=== PATIENT | female | born 1995 | race Caucasian/White ===

== ENCOUNTER 2022-10-01 18:08 | Emergency (ER) | payer BC, SELFPAY ==
[2022-10-01 18:22] VITALS: BP 120/80; PULSE 58; RESP 18; TEMP 36.5; O2SAT 96; BMI 27.0
--- NOTE | 2022-10-01 18:43 | ED.GENADULT ---
HPI - General Adult General Time Seen by Provider: 18:43 Date Seen: 10/01/22 Chief complaint: Arrhythmia/Palpitations Stated complaint: COVID+, Rapid heart rate Time Seen by Provider: 10/01/22 18:17 Source: patient Mode of arrival: ambulatory Limitations: no limitations History of Present Illness HPI narrative: Patient is a 27-year-old female who has had a positive test for COVID the last couple of days, she actually is feeling little bit better with less cough congestion, she has at times felt a rapid heart rate however over the last couple of days. She noticed it just before she came here today. She feels like it is somewhat ?irregular? and that her heart is beating hard. She has had some nausea and has not been able to eat or drink well since she had COVID. She feels she may be a little dehydrated. She has no sore throat, no shortness of breath, note no active chest pain at this time. No leg swelling or edema no bleeding or clotting problems. The patient presents here for evaluation past history she has anxiety, allergies, is on quetiapine and gabapentin and Lamotrigine. Patient takes these medicines for depression/anxiety, she also has a sleep disorder for which she takes the Seroquel. Related Data Home Medications Medication Instructions Recorded Confirmed bupropion HCl 150 mg 24 hr tablet, 150 mg PO DAILY 10/01/22 10/01/22 extended release bupropion HCl 300 mg 24 hr tablet, 300 mg PO DAILY 10/01/22 10/01/22 extended release cetirizine 10 mg tablet 10 mg PO DAILY 10/01/22 10/01/22 gabapentin 600 mg tablet 600 mg PO TID 10/01/22 10/01/22 lamotrigine 100 mg tablet 100 mg PO DAILY 10/01/22 10/01/22 naloxone 4 mg/actuation nasal spray intranasal 10/01/22 quetiapine 25 mg tablet 25 mg PO DAILY 10/01/22 10/01/22 quetiapine 50 mg tablet 50 mg PO DAILY 10/01/22 10/01/22 Allergies Allergy/AdvReac Type Severity Reaction Status Date / Time No Known Drug Allergies Allergy Verified 10/01/22 18:28 Review of Systems Status of ROS: Reports: 6 or more systems reviewed and unremarkable except as noted in History and below PFSH PFS Social History Smoking Status: Current every day smoker What tobacco products do you use: cigarettes Do you use any of these nicotine containing products: Vaping Products Second hand tobacco smoke exposure: No How often do you have a drink containing alcohol: never AUDIT-C Alcohol total score: 0 Non-prescribed substance use: former substance user Exam Const: Vital Signs, click to edit/add: Vital Signs - 24 hr 10/01/22 18:22 Temperature 97.7 F Pulse Rate [Pulse Oximeter] 58 L Respiratory Rate 18 Blood Pressure [Ri ght Upper Arm] 120/80 Pulse Oximetry 96 Oxygen Delivery Me thod Room Air Course Vital Signs Vital signs: Initial Vital Signs Temperature 97.7 F 10/01/22 18:22 Temperature Source Temporal Artery Scan 10/01/22 18:22 Pulse Rate 58 L 10/01/22 18:22 Respiratory Rate 18 10/01/22 18:22 Blood Pressure 120/80 10/01/22 18:22 Blood Pressure Mean 93 10/01/22 18:22 Blood Pressure Position High-Fowlers 10/01/22 18:22 Pulse Oximetry 96 10/01/22 18:22 Oxygen Delivery Method 10/01/22 18:22 Vital Signs Temperature 97.7 F 10/01/22 18:22 Pulse Rate 58 L 10/01/22 18:22 Respiratory Rate 18 10/01/22 18:22 Blood Pressure 120/80 10/01/22 18:22 Pulse Oximetry 96 10/01/22 18:22 Oxygen Delivery Method 10/01/22 18:22 Temperature 97.7 F 10/01/22 18:22 Pulse Rate 58 L 10/01/22 18:22 Respiratory Rate 18 10/01/22 18:22 Blood Pressure 120/80 10/01/22 18:22 Pulse Oximetry 96 10/01/22 18:22 Oxygen Delivery Method 10/01/22 18:22 Medical Decision Making MDM Narrative Medical decision making narrative: Patient is a 27-year-old white female with history of anxiety/depression/sleep disorder. On several medications, now with COVID over the last couple of days. Her COVID symptoms seem, white count is actually little bit low to be improving. She has some intermittent runs of palpitations. When she describes it sounds like her heart is beating ?hard and irregular. Her EKG here shows a normal sinus rhythm at a rate of 61 beats per minute no acute ST T-wave changes per my read, I think would also be appropriate to check electrolytes labs, and given she has some nausea give her some sublingual Zofran and review these labs return. Will also check a troponin. Addendum: The patient's EKG by my read shows normal sinus rhythm no acute ST T wave changes her labs look reassuring, her troponin is normal, her electrolytes are normal, white blood cell count is actually low normal, panel 7 looks unremarkable, calcium just minimally low, point of care troponin is 0. The patient this point felt reassured will let her go home light activity rest some of the side effects could be from COVID and anxiety. 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 She denies using it within the last couple of weeks. She has been through treatment for this in the past she does have Narcan at home Lab Data Labs: Lab Results 10/01/22 10/01/22 10/01/22 Range/Units 18:52 18:52 18:55 WBC 4.12 L (4.50-11.00) K/uL RBC 4.47 (4.00-5.20) m/uL Hgb 12.6 (12.0-16.0) gm/dL Hct 38.9 (33.0-51.0) % MCV 87 (80-100) fL MCH 28 (26-34) pg MCHC 32 (32-36) gm/dL RDW Coeff of Shantel 13.4 (11.5-15.5) % Plt Count 226 (140-440) K/uL Neut % (Auto) 55.2 (42.0-72.0) % Lymph % (Auto) 32.5 (20-44) % Villalba % (Auto) 11.4 H (0.0-11.0) % Eos % (Auto) 0.2 (0.0-7.0) % Baso % (Auto) 0.5 (0.0-3.0) % Neut # (Auto) 2.30 (1.7-7.0) K/uL Lymph # (Auto) 1.30 (0.90-2.90) K/uL Villalba # (Auto) 0.50 (0.00-0.90) K/UL Eos # (Auto) 0.00 (0.00-0.50) K/uL Baso # (Auto) 0.00 (0.00-0.30) K/uL Sodium 137 (135-149) mmol/L Potassium 4.4 (3.6-5.1) mmol/L Chloride 103 (96-114) mmol/L Carbon Dioxide 27 (20-32) mmol/L BUN 13 (5-24) mg/dL Creatinine 0.7 (0.5-1.5) mg/dL Estimated Creat Clear 92.71 Estimated GFR 123 ml/min Glucose 96 (60-115) mg/dL Calcium 8.3 L (8.4-10.6) mg/dL POC Troponin I 0.00 L (0.01-0.04) ng/ml Discharge Plan Discharge Clinical Impression: Palpitations Patient Disposition: Home, Self-Care Condition: Stable Additional Instructions: Fluids, light activity, Advil or Tylenol as needed, update regular doctor in the next couple of days, return to ED sooner problems concerns difficulty. Activity Level: Light activity Discharge Diet: Regular Prescriptions: No Action bupropion HCl 150 mg tablet extended release 24 hr 150 mg PO DAILY Label Comments: TAKE 1 TABLET BY MOUTH DAILY bupropion HCl 300 mg tablet extended release 24 hr 300 mg PO DAILY Label Comments: TAKE 1 TABLET BY MOUTH DAILY cetirizine 10 mg tablet 10 mg PO DAILY gabapentin 600 mg tablet 600 mg PO TID Label Comments: TAKE 1 TABLET BY MOUTH THREE TIMES DAILY FOR 90 DAYS lamotrigine 100 mg tablet 100 mg PO DAILY Label Comments: TAKE 1 TABLET BY MOUTH DAILY quetiapine 25 mg tablet 25 mg PO DAILY quetiapine 50 mg tablet 50 mg PO DAILY naloxone 4 mg/actuation spray,non-aerosol INTRANASAL Label Comments: CALL 911. SPR CONTENTS OF ONE SPRAYER (0.1ML) INTO ONE NOSTRIL. REPEAT IN 2-3 MIN IF SYMPTOMS OF OPIOID EMERGENCY PERSIST, ALTERNATE NOSTRILS Follow Up/Referrals: Provider,Not a Local [Primary Care Provider] - Stand Alone Forms: [facility] Info Instructions
[2022-10-01 18:58] LABS: Basophils Percent Auto 0.5 % (0.0-3.0); Eosinophils Percent Auto 0.2 % (0.0-7.0); Hematocrit 38.9 % (33.0-51.0); Hemoglobin* 12.6 gm/dL (12.0-16.0); Immature Granulocytes Pct Auto 0.2 %; Lymphocytes Percent Auto 32.5 % (20-44); Mean Corpuscular HGB Conc 32 gm/dL (32-36); Mean Corpuscular Hemoglobin 28 pg (26-34); Mean Corpuscular Volume 87 fL (80-100); Monocytes Percent Auto 11.4 % (0.0-11.0); Neutrophils Percent Auto 55.2 % (42.0-72.0); Platelet Count* 226 K/uL (140-440); RDW Coefficient of Variation % 13.4 % (11.5-15.5); Red Blood Count 4.47 m/uL (4.00-5.20); Slide Review Reflex No; White Blood Count* 4.12 K/uL (4.50-11.00)
[2022-10-01] MEDS: ONDANSETRON ODT 4 MG TAB PO (19:08)
[2022-10-01 19:09] LABS: Chloride* 103 mmol/L (96-114); Sodium* 137 mmol/L (135-149)
[2022-10-01 19:10] LABS: Potassium* 4.4 mmol/L (3.6-5.1)
[2022-10-01 19:12] LABS: Blood Urea Nitrogen* 13 mg/dL (5-24); Carbon Dioxide* 27 mmol/L (20-32); Creatinine* 0.7 mg/dL (0.5-1.5); Est. Creatinine Clearance* 92.71; Estimated Glomerular Filt Rate 123 ml/min
[2022-10-01 19:13] LABS: Calcium* 8.3 mg/dL (8.4-10.6); Glucose* 96 mg/dL (60-115)
== END 2022-10-01 19:27 | disposition home or self-care (01) ==
PROVIDERS: Emergency Provider Family Medicine
DX: R00.2 Palpitations (principal)
CPT/HCPCS: 36415; 80048; 84484; 85025; 93005; 99284; A9270

== ENCOUNTER 2023-05-29 11:54 | Emergency (ER) | payer BC, SELFPAY ==
[2023-05-29 12:16] VITALS: BP 149/80; PULSE 70; RESP 18; TEMP 36.7; O2SAT 98; BMI 25.7
--- NOTE | 2023-05-29 12:38 | ED.GENADULT ---
HPI - General Adult General Time Seen by Provider: 12:39 Date Seen: 05/29/23 Chief complaint: Ear/Nose/Throat Problem Stated complaint: Sinus infection Time Seen by Provider: 05/29/23 12:15 Source: patient Mode of arrival: ambulatory Limitations: no limitations History of Present Illness HPI narrative: Patient is a 27-year-old female with a history of sinusitis occurring multiple times. She states she gets that every few months. She states she usually goes to the clinic and is given decongestants and antibiotics. She has never seen ENT specialist. Says symptoms; for the past 4 days. States that insert left maxillary sinus and she has been having and greenish discharge from her left nares. She states now symptoms are going to her left ear. Denies any hearing changes. Has a mildly sore throat on the left side also. Denies fevers, chills, or difficulty breathing. Related Data Home Medications Medication Instructions Recorded Confirmed bupropion HCl 150 mg 24 hr tablet, 150 mg PO DAILY 10/01/22 10/01/22 extended release bupropion HCl 300 mg 24 hr tablet, 300 mg PO DAILY 10/01/22 10/01/22 extended release cetirizine 10 mg tablet 10 mg PO DAILY 10/01/22 10/01/22 gabapentin 600 mg tablet 600 mg PO TID 10/01/22 10/01/22 lamotrigine 100 mg tablet 100 mg PO DAILY 10/01/22 10/01/22 naloxone 4 mg/actuation nasal spray intranasal 10/01/22 quetiapine 25 mg tablet 25 mg PO DAILY 10/01/22 10/01/22 quetiapine 50 mg tablet 50 mg PO DAILY 10/01/22 10/01/22 Previous Rx's Medication Instructions Recorded amoxicillin 875 mg-potassium 1 tab PO BID #14 tabs 05/29/23 clavulanate 125 mg tablet Allergies Allergy/AdvReac Type Severity Reaction Status Date / Time No Known Drug Allergies Allergy Verified 10/01/22 18:28 Review of Systems Status of ROS: Reports: 6 or more systems reviewed and unremarkable except as noted in History and below [facility] Social History Smoking Status: Current every day smoker What tobacco products do you use: cigarettes Do you use any of these nicotine containing products: Vaping Products Second hand tobacco smoke exposure: No How often do you have a drink containing alcohol: never AUDIT-C Alcohol total score: 0 Non-prescribed substance use: former substance user service: No Exam Narrative: Exam Narrative: Const: Well-nourished, Well-developed, in mild distress Eyes: PERRL, no conjunctival injection, and symmetrical lids ENMT: Atraumatic external nose and ears. Moist mucous membranes. Uvula midline, no tonsillar exudates or swelling, normal-appearing tympanic membranes bilaterally. There is some swelling noted to the left nares mucosa. Tenderness to palpation left maxillary sinus Neck: Symmetric, trachea midline, No thyromegaly. MSK:Extremities w/o deformity, Normal Active ROM Skin: Warm, Dry. No rashes or lesions. Neuro: Normal Muscle tone, No focal neurological deficits. Psych: Awake, Alert, & Oriented x3. Appropriate mood and affect. Const: Vital Signs, click to edit/add: Vital Signs - 24 hr 05/29/23 12:16 Temperature 98.1 F Pulse Rate [Pulse Oximeter] 70 Respiratory Rate 18 Blood Pressure [Ri ght Upper Arm] 149/80 H Pulse Oximetry 98 Oxygen Delivery Me thod Room Air Course Vital Signs Vital signs: Initial Vital Signs Temperature 98.1 F 05/29/23 12:16 Temperature Source Temporal Artery Scan 05/29/23 12:16 Pulse Rate 70 05/29/23 12:16 Pulse Rhythm Regular 05/29/23 12:16 Respiratory Rate 18 05/29/23 12:16 Blood Pressure 149/80 H 05/29/23 12:16 Blood Pressure Mean 103 05/29/23 12:16 Blood Pressure Position Sitting 05/29/23 12:16 Pulse Oximetry 98 05/29/23 12:16 Oxygen Delivery Method Room Air 05/29/23 12:16 Vital Signs Temperature 98.1 F 05/29/23 12:16 Pulse Rate 70 05/29/23 12:16 Respiratory Rate 18 05/29/23 12:16 Blood Pressure 149/80 H 05/29/23 12:16 Pulse Oximetry 98 05/29/23 12:16 Oxygen Delivery Method Room Air 05/29/23 12:16 Temperature 98.1 F 05/29/23 12:16 Pulse Rate 70 05/29/23 12:16 Respiratory Rate 18 05/29/23 12:16 Blood Pressure 149/80 H 05/29/23 12:16 Pulse Oximetry 98 05/29/23 12:16 Oxygen Delivery Method Room Air 05/29/23 12:16 Medical Decision Making MDM Narrative Medical decision making narrative: The patient is a 27-year-old female presenting for 4 days of sinusitis. This is recurrent issue for her. Has never seen ENT specialist has been on several decongestants and a couple round of antibiotics over the last few years for sinusitis. She states usually as she gets antibiotics his symptoms resolve quickly. She is otherwise doing well. No lab work is necessary at this time. She does preoperative signs of sinusitis. Has a mild sore throat but no signs of deep neck space abscesses. She states she has only been on antibiotics once in the past year. She has been on nasal decongestants and has been using afrin for the past 2 days. I will discharge her home on antibiotics at this time. I informed her to follow up with ENT. She is agreeable to this plan Discharge Plan Discharge Clinical Impression: Sinusitis Qualifiers: Sinusitis location: maxillary Chronicity: acute Recurrence: recurrent Qualified Code(s): J01.01 - Acute recurrent maxillary sinusitis Patient Disposition: Home, Self-Care Condition: Stable Instructions: Sinusitis (ED) Additional Instructions: Follow-up with ENT. Take antibiotics as directed. Make sure you do not take the Afrin for more than 3 days. Return for new worsening symptoms Prescriptions: New amoxicillin-pot clavulanate 875-125 mg tablet 1 tab PO BID Qty: 14 0RF No Action bupropion HCl 150 mg tablet extended release 24 hr 150 mg PO DAILY Patient Comments: TAKE 1 TABLET BY MOUTH DAILY bupropion HCl 300 mg tablet extended release 24 hr 300 mg PO DAILY Patient Comments: TAKE 1 TABLET BY MOUTH DAILY cetirizine 10 mg tablet 10 mg PO DAILY gabapentin 600 mg tablet 600 mg PO TID Patient Comments: TAKE 1 TABLET BY MOUTH THREE TIMES DAILY FOR 90 DAYS lamotrigine 100 mg tablet 100 mg PO DAILY Patient Comments: TAKE 1 TABLET BY MOUTH DAILY quetiapine 25 mg tablet 25 mg PO DAILY quetiapine 50 mg tablet 50 mg PO DAILY naloxone 4 mg/actuation spray,non-aerosol INTRANASAL Patient Comments: CALL 911. SPR CONTENTS OF ONE SPRAYER (0.1ML) INTO ONE NOSTRIL. REPEAT IN 2-3 MIN IF SYMPTOMS OF OPIOID EMERGENCY PERSIST, ALTERNATE NOSTRILS Follow Up/Referrals: Provider,Not a Local [Primary Care Provider] - Stand Alone Forms: [facility] Info Instructions
--- NOTE | 2023-05-29 12:45 | ED.NURSE ---
ENT doctor card/recommendation given to pt.
== END 2023-05-29 13:04 | disposition home or self-care (01) ==
PROVIDERS: Emergency Provider Student in an Organized Health Care Education/Training Program
DX: J01.01 Acute recurrent maxillary sinusitis (principal)
CPT/HCPCS: 99283

== ENCOUNTER 2023-11-12 13:26 | Emergency (ER) | payer BC, SELFPAY ==
[2023-11-12 13:49] VITALS: BP 110/67; PULSE 89; RESP 18; TEMP 36.9; O2SAT 97; BMI 27.0
--- NOTE | 2023-11-12 16:23 | ED_ITS ---
HPI - General Adult General Chief complaint: Dental/Oral/Mouth Injury/Pain Stated complaint: Lower L tooth cracked and face very swollen Time Seen by Provider: 11/12/23 16:06 Source: patient, RN notes reviewed and old records reviewed Mode of arrival: ambulatory Limitations: no limitations History of Present Illness HPI narrative: Patient is a 28-year-old young woman who is here with dental pain related to a wisdom tooth, left lower. She has had problems with this tooth for quite some time, has been on antibiotics several times previously, she says she has not been able to arrange dental follow-up due to her insurance. She says the only clinic that she will able to find who took her insurance did have any appointments until June. She is worried that the tooth is cracked and that she will get a blood infection. It feels swollen, no fevers or redness. Medical history reviewed, she is on Suboxone as well as methylphenidate. Related Data Home Medications Medication Instructions Recorded Confirmed bupropion HCl 150 mg 24 hr tablet, 150 mg PO DAILY 10/01/22 11/12/23 extended release bupropion HCl 300 mg 24 hr tablet, 300 mg PO DAILY 10/01/22 11/12/23 extended release lamotrigine 100 mg tablet 100 mg PO DAILY 10/01/22 11/12/23 naloxone 4 mg/actuation nasal spray intranasal 10/01/22 buprenorphine 8 mg-naloxone 2 mg 10 mg sublingual BID 11/12/23 11/12/23 sublingual film (Suboxone) doxazosin 2 mg tablet 1 mg PO BID 11/12/23 11/12/23 methylphenidate HCl 20 mg tablet 20 mg PO BID 11/12/23 11/12/23 trazodone 100 mg tablet 200 mg PO DAILY 11/12/23 11/12/23 Allergies Allergy/AdvReac Type Severity Reaction Status Date / Time No Known Drug Allergies Allergy Verified 11/12/23 13:48 Review of Systems Status of ROS: Reports: 6 or more systems reviewed and unremarkable except as noted in History and below PFSH PFS Social History Smoking Status: Current every day smoker What tobacco products do you use: cigarettes Do you use any of these nicotine containing products: Vaping Products Second hand tobacco smoke exposure: No How often do you have a drink containing alcohol: never AUDIT-C Alcohol total score: 0 Non-prescribed substance use: former substance user service: No Exam Narrative: Exam Narrative: Vital signs reviewed and normal. In general, alert, well-appearing young woman. She looks comfortable. Eyes: Sclera clear. ENT: No facial swelling. She has a wisdom tooth which is erupted in the left lower jaw, there is no surrounding erythema or edema, nontender to palpation. I do not see obvious significant cracking in the tooth. Neck: Supple without adenopathy. Const: Vital Signs, click to edit/add: Vital Signs - 24 hr 11/12/23 13:49 Temperature 98.4 F Pulse Rate [Pulse Oximeter] 89 Respiratory Rate 18 Blood Pressure [Ri ght Upper Arm] 110/67 Pulse Oximetry 97 Oxygen Delivery Me thod Room Air Documenting provider has reviewed patient's vital signs: yes Course Course ED Course: I have reassured her I do not see evidence of significant abscess or infection at this time, but certainly can provide antibiotics to help with apical abscess. Stressed the need for dental follow-up, provided resources, recommended [place] [facility] [place] as well. Return for signs of abscess such as facial swelling redness or fever. Provided amoxicillin from [facility]. Her last antibiotics for this to she says was a number of months ago. Ibuprofen and Tylenol recommended for pain. Vital Signs Vital signs: Initial Vital Signs Temperature 98.4 F 11/12/23 13:49 Temperature Source Temporal Artery Scan 11/12/23 13:49 Pulse Rate 89 11/12/23 13:49 Pulse Rhythm Regular 11/12/23 13:49 Pulse Strength 3+ Normal 11/12/23 13:49 Respiratory Rate 18 11/12/23 13:49 Blood Pressure 110/67 11/12/23 13:49 Blood Pressure Mean 81 11/12/23 13:49 Blood Pressure Position Sitting 11/12/23 13:49 Pulse Oximetry 97 11/12/23 13:49 Oxygen Delivery Method Room Air 11/12/23 13:49 Vital Signs Temperature 98.4 F 11/12/23 13:49 Pulse Rate 89 11/12/23 13:49 Respiratory Rate 18 11/12/23 13:49 Blood Pressure 110/67 11/12/23 13:49 Pulse Oximetry 97 11/12/23 13:49 Oxygen Delivery Method Room Air 11/12/23 13:49 Temperature 98.4 F 11/12/23 13:49 Pulse Rate 89 11/12/23 13:49 Respiratory Rate 18 11/12/23 13:49 Blood Pressure 110/67 11/12/23 13:49 Pulse Oximetry 97 11/12/23 13:49 Oxygen Delivery Method Room Air 11/12/23 13:49 Discharge Plan Discharge Clinical Impression: Toothache Patient Disposition: Home, Self-Care Condition: Stable Instructions: Toothache (ED) Additional Instructions: Dental follow-up will be very important, all the resources provided. Consider looking into [facility] [place] regions as well as they have training programs and are often flexible with financing. Antibiotic as prescribed. Ibuprofen 400 mg plus Tylenol 1000 mg 3 times daily with food as needed for pain. Ice can be helpful as well. For development of fevers, significant facial swelling or redness, return at any time. Prescriptions: No Action methylphenidate HCl 20 mg tablet 20 mg PO BID trazodone 100 mg tablet 200 mg PO DAILY doxazosin 2 mg tablet 1 mg PO BID buprenorphine-naloxone [Suboxone] 8-2 mg film 10 mg sublingual BID bupropion HCl 150 mg tablet extended release 24 hr 150 mg PO DAILY Patient Comments: TAKE 1 TABLET BY MOUTH DAILY bupropion HCl 300 mg tablet extended release 24 hr 300 mg PO DAILY Patient Comments: TAKE 1 TABLET BY MOUTH DAILY lamotrigine 100 mg tablet 100 mg PO DAILY Patient Comments: TAKE 1 TABLET BY MOUTH DAILY naloxone 4 mg/actuation spray,non-aerosol INTRANASAL Patient Comments: CALL 911. SPR CONTENTS OF ONE SPRAYER (0.1ML) INTO ONE NOSTRIL. REPEAT IN 2-3 MIN IF SYMPTOMS OF OPIOID EMERGENCY PERSIST, ALTERNATE NOSTRILS Follow Up/Referrals: Provider,Not a Local [Primary Care Provider] - Stand Alone [facility]: [facility]
--- OUTSIDE RECORDS SUMMARY | 2023-11-12 16:37 | XMS_ITS | Data Portability ---
Author Name Unknown Address [address] [place] [address] Phone [phone] Organization [place] [facility] Address [address] [place] [phone] Assessment No assessment recorded. Plan of Treatment Reminders Order Date Submit Date Provider Last Modified By Organization Details Last Modified Time Details Appointments None recorded. Lab drug screen, urine [address] Office, [address] [place] [address], [phone], 3 17:21:53 test, urine [address] Office, [address] [place] [address], [phone], 3 17:21:53 fentanyl, qualitativ e, urine - POCT: Positive 2021 [email or web address] Not available 23:34:07 test, urine [address] Office, [address] [place] [address], [address], 2 11:45:46 drug screen, urine [address] Office, [address] [place] [address], [address], 2 11:45:46 hepatitis panel (A+B+C), acute, serum 2021 022 JESUS MANUEL Not available 17:51:14 HIV (1+2) Ab screen, serum 2021 JESUS MANUEL Not available 16:58:07 RPR (rapid plasma reagin), serum 2021 JESUS MANUEL Not available 10:42:05 hepatic function panel, serum 2021 JESUS MANUEL Not available 16:58:07 Referral None recorded. Procedures None recorded. Surgeries None recorded. Imaging None recorded. Medication Orders fluconazol e 150 mg tablet 2022 023 [facility] #29601, [address] [place], [place], [id number], 14:52:04 Miralax 17 gram/dose oral powder 2022 023 [facility] #04795, [address] [place], [place], [id number], 3 14:52:03 Suboxone 12 mg-3 mg sublingual film 2022 023 [facility] #76814, [address] [place], [place], [id number], 3 14:52:10 Suboxone 8 mg-2 mg sublingual film 2022 023 [facility] #31360, [address] [place], [place], [id number], 3 14:52:09 quetiapine 50 mg tablet [email or web address] [place] [address] [facility] #88325, [address] [place], [place], [id number], 3 14:43:22 Suboxone 12 mg-3 mg sublingual film 2022 023 [facility] #70953, [address] [place], [place], [id number], 3 18:10:44 Suboxone 8 mg-2 mg sublingual film 2022 023 [facility] #03423, [address] [place], [place], [id number], 3 18:10:44 Suboxone 12 mg-3 mg sublingual film 2022 023 [facility] #79699, [address] [place], [place], [id number], 3 15:47:07 Suboxone 8 mg-2 mg sublingual film 2022 023 [facility] #89441, [address] [place], [place], [id number], 3 15:47:07 Suboxone 12 mg-3 mg sublingual film 2022 023 [facility] #08469, [address] [place], [place], [id number], 3 17:14:22 Suboxone 8 mg-2 mg sublingual film 2022 023 [facility] #59581, [address] [place], [place], [id number], 3 17:14:22 gabapentin 300 mg capsule [id number] [place] [address] Drug Store #26455, [address] [place], [place], [id number], 3 14:42:25 Suboxone 12 mg-3 mg sublingual film 2022 023 [facility]79817, [address] [place], [place], [id number], 3 17:13:12 Suboxone 8 mg-2 mg sublingual film 2022 023 [facility]33824, [address] [place], [place], [id number], 3 17:13:12 Suboxone 8 mg-2 mg sublingual film 2022 023 [facility] #30772, [address] [place], [place], [id number], 3 15:18:24 Suboxone 12 mg-3 mg sublingual film 2022 023 [facility]62579, [address] [place], [place], [id number], 3 15:18:23 Suboxone 8 mg-2 mg sublingual film 2022 023 [facility]21238, [address] [place], [place], [id number], 3 15:20:52 Suboxone 2 mg-0.5 mg sublingual film [address] [facility] #88657, [address] [place], [place], [id number], 3 15:58:48 Suboxone 8 mg-2 mg sublingual film 2022 023 [facility]13306, [address] [place], [place], [id number], 3 13:25:54 loperamide 2 mg tablet [address] [facility] #75116, [address] [place], [place], [id number], 3 12:40:11 clonidine HCl 0.1 mg tablet [address] [facility] #37685, [address] [place], [place], [id number], 3 16:00:53 Suboxone 8 mg-2 mg sublingual film 2021 [facility] #79702, [address] [place], [place], [id number], 2 17:09:21 Suboxone 8 mg-2 mg sublingual film 2021 [facility] #11674, [address] [place], [place], [id number], 2 16:57:13 Suboxone 8 mg-2 mg sublingual film 2021 [facility] #58097, [address] [place], [place], [id number], 2 15:43:46 ondansetro n 4 mg disintegra ting tablet [address] [facility] #45955, [address] [place], [place], [id number], 2 15:38:36 sulfametho xazole 800 mg-trimeth oprim 160 mg tablet [address] [facility] #45372, [address] [place], [place], [id number], 2 15:39:45 clonidine HCl 0.1 mg tablet 2021 [facility] #26099, [address] [place], [place], [id number], 3 16:00:53 Narcan 4 mg/actuati on nasal spray 2021 [facility] #68908, [address] [place], [place], [id number], 2 15:01:04 Suboxone 8 mg-2 mg sublingual film 2021 [facility] #18527, [address] [place], [place], [id number], 15:01:06 Suboxone 8 mg-2 mg sublingual film 2021 [facility]84156, [address] [place], [place], [id number], 14:43:28 Narcan 4 mg/actuati on nasal spray 2021 [facility] #77737, [address] [place], [place], [id number], 14:47:23 Patient TargetsNo targets recorded. Patient Instructions Encounter Date Encounter Id Patient Instructions Last Modified By Organization Details Last Modified Time 02/07/2023 [id number] anxiety disorder : care instructions [email or web address] Not available 02/07/2023 17:14:11 07/19/2022 [id number] dental referral list [email or web address] Not available 07/19/2022 16:49:06 coordination of care* - Referral to [facility] for Sublocade consideration. Completed referral given to Adolfo Mcdaniel [email or web address] Not available 08/10/2022 20:16:32 05/31/2022 [id number] nausea and vomiting: care instructions [email or web address] Not available 05/31/2022 15:00:55 Reason for Referral None Reported. Results Created Date Observation Date Name Description Value Unit Range Abnormal Flag LastModifiedBy Organization Detail LastModifiedTime 08/10/20 22 08/10/2022 drug scree n, urine Amphetamines : negati ve Not Available [place] [facility] [address] [place] [address] [place], [address], 08/10/2022 11:45:03 08/10/20 22 08/10/2022 drug scree n, urine Cannabinoids : negati ve Not Available [place] [facility] [address] [place] [address] [place], [address], 08/10/2022 11:45:03 08/10/20 22 08/10/2022 drug scree n, urine Cocaine: negati ve Not Available [place] [facility] [place] [facility] [address] [place] [address] [place], [address], 08/10/2022 11:45:03 08/10/20 22 08/10/2022 drug scree n, urine Opiates: negati ve Not Available [place] [facility] [place] [facility] [address] [place] [address] [place], [address], 08/10/2022 11:45:03 08/10/20 22 08/10/2022 drug scree n, urine Phenocyclidi ne: negati ve Not Available [place] [facility] [place] [facility] [address] [place] [address] [place], [address], 08/10/2022 11:45:03 08/10/20 22 08/10/2022 drug scree n, urine Barbiturates : negati ve Not Available [place] [facility] [place] [facility] [address] [place] [address] [place], [address], 08/10/2022 11:45:03 08/10/20 22 08/10/2022 drug scree n, urine Benzodiazepi carlene: negati ve Not Available [place] [facility] [address] [place] [address] [place], [address], 08/10/2022 11:45:03 08/10/20 22 08/10/2022 drug scree n, urine Hallucinogen s: negati ve Not Available [place] [facility] [place] [facility] [address] [place] [address] [place], [address], 08/10/2022 11:45:03 08/10/20 22 08/10/2022 drug scree n, urine TCA negati ve Not Available [place] [facility] [place] [facility] [address] [place] [address] [place], [address], 08/10/2022 11:45:03 08/10/20 22 08/10/2022 drug scree n, urine Buprenorphin e negati ve Not Available [place] [facility] [address] [place] [address] [place], [address], 08/10/2022 11:45:03 08/10/20 22 08/10/2022 pregn jane test, urine HCG negati ve Not Available [place] [facility] [address] [place] [address] [place], [address], 08/10/2022 11:44:44 01/11/20 23 01/10/2023 pregn jane test, urine HCG negati ve Not Available [place] [facility] [address] [place] [address] [place], [address], 01/10/2023 17:21:22 01/11/20 23 01/10/2023 drug scree n, urine Amphetamines : negati ve Not Available [place] [facility] [address] [place] [address] [place], [address], 01/10/2023 17:21:21 01/11/20 23 01/10/2023 drug scree n, urine Cannabinoids : positi ve Not Available [place] [facility] [address] [place] [address] [place], [address], 01/10/2023 17:21:21 01/11/20 23 01/10/2023 drug scree n, urine Cocaine: negati ve Not Available [place] [facility] [place], [address], 01/10/2023 17:21:21 01/11/20 23 01/10/2023 drug scree n, urine Opiates: negati ve Not Available [place] [facility] [place], [address], 01/10/2023 17:21:21 01/11/20 23 01/10/2023 drug scree n, urine Phenocyclidi ne: negati ve Not Available [place] [facility] [address] [place] [address] [place], [address], 01/10/2023 17:21:21 01/11/20 23 01/10/2023 drug scree n, urine Barbiturates : negati ve Not Available [place] [facility] [place] [facility] [address] [place] [address] [place], [address], 01/10/2023 17:21:21 01/11/20 23 01/10/2023 drug scree n, urine Benzodiazepi carlene: negati ve Not Available [place] [facility] [place] [facility] [address] [place] [address] [place], [address], 01/10/2023 17:21:21 01/11/20 23 01/10/2023 drug scree n, urine Buprenorphin e positi ve Not Available [place] [facility] [address] [place] [address] [place], [address], 01/10/2023 17:21:21 Result Notes None recorded. Problems Name Status Onset Date Resolution Date Notes Provider Name and Address Organization Details Recorded Time Fentanyl dependence Completed 022 06/21/2022 Josseline Mathur NP [address] [place] [address] [place], [address] , [facility] - [facility] 06/21/2022 15:55:42 History of intravenous drug abuse Active 022 08/22: HIV and HCV Neg. Josseline Mathur NP [address] [place], [address] , [facility] 06/20/2023 15:46:30 Generalized anxiety disorder Completed 05/10/2022 Josseline Mathur, PIPE [address] [facility] [place], [address] , [facility] 05/10/2022 15:27:19 Generalized anxiety disorder Active Josseline Mathur, PIPE [address] [facility] [place], [address] , [facility] 05/10/2022 15:27:19 Opioid dependence, on agonist therapy Active Josseline Mathur, PIPE [address] [facility] [place], [address] , [facility] 06/21/2022 15:55:36 Problem Notes None recorded. Medical Equipment None Reported. Allergies No known drug allergies Medications Name Sig Start Date Stop Date Status Note LastModified by Organization Details LastModified Time quetiapine 25 mg tablet TAKE ONE-HALF TO 1 TABLET BY MOUTH TWICE DAILY NEEDED active Not Available Not Available No t Available Anti-Diarrh eal (loperamide ) 2 mg tablet Take 2 tablets (4mg) at first sign of diarrhea then 1 tablet after each loose stool. Max is 8 tablets/d ay. May use for 2 days only. 11/01 completed Not Available Not Available Not Available lamotrigine 150 mg tablet TAKE 1 TABLET BY MOUTH ONCE DAILY 05/31 completed Not Available Not Available Not Available clonidine HCl 0.1 mg tablet TAKE 1 TABLET BY MOUTH UP TO EVERY 8 TO 12 HOURS NEEDED FOR RESTLESSN ESS 11/22 completed Not Available Not Available Not Available prednisone 10 mg tablet TAKE 3 TABLETS BY MOUTH EVERY DAY WITH A MEAL FOR 2 DAYS THEN TAKE 2 TABLETS EVERY DAY FOR 2 DAYS THEN TAKE 1 TABLET EVERY DAY FOR 2 DAYS 05/31 completed Not Available Not Available Not Available gabapentin 600 mg tablet TAKE 1 TABLET BY MOUTH THREE TIMES DAILY 03/21 completed Not Available Not Available Not Available quetiapine 300 mg tablet TAKE 1 TABLET BY MOUTH AT BEDTIME active Not Available Not Available No t Available trazodone 50 mg tablet 05/31 completed Not Available Not Available Not Available cetirizine 10 mg tablet TAKE 1 TABLET BY MOUTH ONCE DAILY active Not Available Not Available No t Available azithromyci n 250 mg tablet 05/31 completed Not Available Not Available Not Available fluconazole 150 mg tablet TAKE 1 TABLET BY MOUTH NOW FOR 1 DOSE. MAY REPEAT IN 5-7 DAYS NEEDED active Not Available Not Available No t Available propranolol 60 mg tablet active Not Available Not Available Not Available sulfamethox azole 800 mg-trimetho prim 160 mg tablet TAKE 1 TABLET BY MOUTH EVERY 12 HOURS 06/21 completed Not Available Not Available Not Available quetiapine 100 mg tablet 05/31 completed Not Available Not Available Not Available lamotrigine 25 mg tablet TAKE 2 TABLETS BY MOUTH DAILY 06/20 completed Not Available Not Available Not Available propranolol 40 mg tablet TAKE 1 TABLET BY MOUTH TWICE DAILY DIRECTED active Not Available Not Available No t Available citalopram 20 mg tablet TAKE 1 TABLET BY MOUTH EVERY DAY 05/31 completed Not Available Not Available Not Available triamcinolo ne acetonide 0.1 % topical ointment APPLY TOPICALLY TO THE AFFECTED AREA TWICE DAILY 02/07 completed Not Available Not Available Not Available gabapentin 300 mg capsule TAKE 1 CAPSULE BY MOUTH THREE TIMES DAILY active Not Available Not Available No t Available mirtazapine 15 mg tablet TAKE 1 TABLET BY MOUTH EVERY NIGHT AT BEDTIME DIRECTED active Not Available Not Available No t Available polyethylen e glycol 3350 17 gram/dose oral powder MIX 1 CAPFUL IN 8OZ OF WATER AND TAKE ONCE DAILY NEEDED FOR CONSTIPAT ION active Not Available Not Available No t Available propranolol 20 mg tablet TAKE 1 TABLET BY MOUTH EVERY DAY DIRECTED active Not Available Not Available No t Available ondansetron 4 mg disintegrat ing tablet DISSOLVE 1 TABLET ON THE TONGUE UP TO TWICE DAILY NEEDED FOR NAUSEA 06/21 completed Not Available Not Available Not Available lamotrigine 100 mg tablet TAKE 1 TABLET BY MOUTH EVERY DAY DIRECTED active Not Available Not Available No t Available doxazosin 2 mg tablet TAKE 1/2 TABLET BY MOUTH TWICE DAILY DIRECTED active Not Available Not Available No t Available amoxicillin 875 mg-potassiu m clavulanate 125 mg tablet TAKE 1 TABLET BY MOUTH TWICE DAILY 06/20 completed Not Available Not Available Not Available bupropion HCl XL 300 mg 24 hr tablet, extended release TAKE 1 TABLET BY MOUTH EVERY DAY DIRECTED active Not Available Not Available No t Available bupropion HCl XL 150 mg 24 hr tablet, extended release TAKE 1 TABLET BY MOUTH EVERY DAY active Not Available Not Available No t Available mirtazapine 7.5 mg tablet 05/31 completed Not Available Not Available Not Available nitrofurant oin monohydrate /macrocryst als 100 mg capsule 05/31 completed Not Available Not Available Not Available aripiprazol e 2 mg tablet 06/07 completed Not Available Not Available Not Available quetiapine 50 mg tablet TAKE 1 TABLET BY MOUTH EVERY NIGHT 30 MINUTES BEFORE BEDTIME active Not Available Not Available No t Available Suboxone 8 mg-[address] 1 FILM UNDER THE TONGUE EVERY MORNING active Not Available Not Available No t Available Suboxone 2 mg-0.5 mg sublingual film Day 1: 0.25 film SL BID. Day 2: 0.5 film SL BID. Day 3 1 film BID. Day 4: 1.5 films SL BID. Day 5: 2 films BID. 11/22 completed Not Available Not Available Not Available lurasidone 40 mg tablet TAKE 1 TABLET BY MOUTH EVERY EVENING WITH MEALS. FOLLOW TITRATION INSTRUCTI ONS IN THE PORTAL active Not Available Not Available No t Available lurasidone 80 mg tablet TAKE 1 TABLET BY MOUTH AT BEDTIME DIRECTED active Not Available Not Available No t Available Latuda 20 mg tablet 05/31 completed Not Available Not Available Not Available Suboxone 12 mg-[address] 1 FILM UNDER THE TONGUE EVERY EVENING active Not Available Not Available No t Available lurasidone 60 mg tablet TAKE 1 TABLET BY MOUTH EVERY EVENING WITH MEALS active Not Available Not Available No t Available Narcan 4 mg/actuatio n nasal spray CALL 911. SPR CONTENTS OF ONE SPRAYER (0.1ML) INTO ONE NOSTRIL. REPEAT IN 2-3 MIN IF SYMPTOMS OF OPIOID EMERGENCY PERSIST, ALTERNATE NOSTRILS active Not Available Not Available No t Available Vitals Date Recorded Body height Body mass index (BMI) Body weight Provider Name and Address Organization Details Last Updated DateTime 05/10/2022 156.21 cm 31 kg/m2 74880.93 g Josseline Mathur, [employer] [address] [place], [address], [place] - [facility] 05/10/2022 15:06:07 Date Recorded Body height Heart rate Body mass index (BMI) Body weight Systolic blood pressure Diastolic blood pressure Provider Name and Address Organization Details Last Updated DateTime 2 156.21 cm 86 /min 27.9 kg/m2 27495.8 6 g 112 mm[Hg] 66 mm[Hg] Kole Prathercalixto omalley [facility] 2 16:37:59 Date Recorded Body height Body mass index (BMI) Body weight Heart rate Systolic blood pressure Diastolic blood pressure Provider Name and Address Organization Details Last Updated DateTime 2 156.21 cm 27.3 kg/m2 81325.0 8 g 73 /min 107 mm[Hg] 78 mm[Hg] Kole [facility]alley [facility] 2 16:52:29 Date Recorded Body height Body mass index (BMI) Body weight Provider Name and Address Organization Details Last Updated DateTime 12/18/2022 156.21 cm 24.9 kg/m2 53484.38 g Josseline Mathur NP [address] [place], [address], [facility] 12/18/2022 15:14:25 Social History Question Answer Notes LastModified by Organizat ion Details LastModified Time Tobacco Smoking Status Current Every Day Smoker Josseline Mathur, PIPE [address] [place], [address], [facility] 05/10/2022 15:03:04 Are You Currently Employed? Yes [email or web address] Information not available 05/10/2022 What Is The Highest Grade Or Level Of School You Have Completed Or The Highest Degree You Have Received? [id number] Information not available 05/10/2022 Who Is Your Employer? [employer] [email or web address] Information not available 03/21/2023 Sex: Female Functional Status None recorded. Mental Status None recorded. Family History Nothing Reported. Medical History Condition Response Hepatitis/Liver Disease N Psychiatric/Mental Health Condition Y Substance Abuse Y Mental Illness Y Gynecological History Statement/Question Response Menses Monthly Y LMP Approximate Sexually Active? N Obstetrics History GPAL:G 0 P 0 0 0 0 Immunizations Vaccine Type Date Status Provider Name and Address Organization Details Recorded Time DTaP, unspecified formulation 1997 lilibeth Mathur, PIPE [address] [facility] [place], [address], [facility] 08/10/2022 11:56:06 HPV9 12/27/2017 lilibeth Mathur, PIPE [place] [facility] [place], [address], [facility] 08/10/2022 11:56:06 Td (adult), 5 Lf tetanus toxoid, preservative free, adsorbed 03/02/2021 completed Josseline Mathur, PIPE [place] [facility] [place], [address], [facility] 08/10/2022 11:56:06 Hep B, adolescent or pediatric 1997 P[address] [place] [facility] [place], [address], [facility] 08/10/2022 11:56:06 DTaP, unspecified formulation 1997 lilibeth Mathur, PIPE [address] [facility] [place], [address], [facility] 08/10/2022 11:56:06 Hep A, adult 04/11/2021 lilibeth Mathur, PIPE [address] [facility] [place], [address], [facility] 08/10/2022 11:56:06 Hep B, adolescent or pediatric 01/26/1998 PIPE [place] [facility] [place], [address], [facility] 08/10/2022 11:56:06 DTaP, unspecified formulation 12/25/2002 PIPE [place] [facility] [place], [address], [facility] 08/10/2022 11:56:06 HPV9 06/27/2016 PIPE [place] [facility] [place], [address], [facility] 08/10/2022 11:56:06 meningococcal B, OMV 04/11/2021 completed Josseline Mathur NP [address] [facility] [place], [address], [facility] 08/10/2022 11:56:06 Hep B, adolescent or pediatric 1997 completed Josseline Mathur, PIPE [address] [facility] [place], [address], [facility] 08/10/2022 11:56:06 MMR 12/25/2002 completed Josseline Mathur NP [address] [facility] [place], [address], [facility] 08/10/2022 11:56:06 IPV 1997 completed Josseline Mathur, PIPE [address] [facility] [place], [address], [facility] 08/10/2022 11:56:06 meningococcal MCV4P 06/27/2016 completed Josseline Mathur, PIPE [address] [facility] [place], [address], [facility] 08/10/2022 11:56:06 pneumococcal polysaccharide PPV23 03/02/2021 completed Josseline Mathur NP [address] [facility] [place], [address], [facility] 08/10/2022 11:56:06 meningococcal MCV4P 11/22/2009 completed Josseline Mathur NP [address] [facility] [place], [address], [facility] 08/10/2022 11:56:06 varicella 01/12/2010 lilibeth Mathur NP [address] [facility] [place], [address], [facility] 08/10/2022 11:56:06 Hep A, ped/adol, 2 dose 06/27/2016 completed PIPE [place] [facility] [place], [address], [facility] 08/10/2022 11:56:06 DTaP, unspecified formulation 01/26/1998 completed Josseline Mathur, PIPE [address] [facility] [place], [address], [facility] 08/10/2022 11:56:06 Hib (PRP-T) 08/24/1998 completed Josseline Mathur, PIPE [address] [facility] [place], [address], [facility] 08/10/2022 11:56:06 meningococcal MPSV4 11/22/2009 completed Josseline Mathur, PIPE [address] [facility] [place], [address], [facility] 08/10/2022 11:56:06 Hib (PRP-T) 1997 completed Josseline Mathur, PIPE [address] [place], [address], [facility] 08/10/2022 11:56:06 Influenza, seasonal, injectable 08/23/2010 completed Josseline Mathur, PIPE [address] [place], [address], [facility] 08/10/2022 11:56:06 Tdap 01/08/2010 completed Josseline Mathur, PIPE [address] [place], [address], [facility] 08/10/2022 11:56:06 Hib (PRP-T) 01/26/1998 completed Josseline Mathur, PIPE [address] [place], [address], [facility] 08/10/2022 11:56:06 Hib (PRP-T) 1997 completed Josseline Mathur, P[address] [place], [address], [facility] 08/10/2022 11:56:06 Influenza, seasonal, injectable 06/30/2009 completed Josseline Mathur, [place], [address], [facility] 08/10/2022 11:56:06 COVID-19 vaccine, vector-nr, [id number], PF, 0.5 mL 02/17/2021 completed Josseline Mathur, PIPE [address] [place], [address], [facility] 08/10/2022 11:56:06 MMR 08/24/1998 completed Josseline Mathur, PIPE [facility] [place], [address], [facility] 08/10/2022 11:56:06 IPV 1997 completed Josseline Mathur, [place], [address], [facility] 08/10/2022 11:56:06 IPV 12/25/2002 completed Josseline Mathur, PIPE [address] [place], [address], [facility] 08/10/2022 11:56:06 Novel Skognjize-[id number], all formulations 11/22/2009 completed Josseline Mathur, [address] [place], [address], [facility] 08/10/2022 11:56:06 COVID-19, mRNA, LNP-S, PF, 30 mcg/0.3 mL dose 10/27/2021 completed Josseline Mathur, [address] [place], [address], [facility] 08/10/2022 11:56:06 influenza, injectable, quadrivalent, preservative free 06/27/2016 completed Josseline Mathur, [address] [place], [address], [facility] 08/10/2022 11:56:06 HPV9 03/02/2021 completed Josseline Mathur, PIPE [facility] [place], [address], [facility] 08/10/2022 11:56:06 varicella 08/24/1998 completed Josseline Mathur, [place], [address] 08/10/2022 11:56:06 Past Encounters Encounter ID Performer Location Encounter Start Date Encounter Closed Date Diagnosis/Indication [id number] Josseline Mathur NP [facility] [address] [place] [address] [place] [id number] 05/10/2022 14:03:07 05/10/2022 14:54:40 Fentanyl dependence History of intravenous drug abuse Alcohol intake above recommended sensible limits [id number] [facility] [address] [place] [address] [place] [address] 05/31/2022 14:40:16 05/31/2022 15:06:48 Acute urinary tract infection Fentanyl dependence Nausea [id number] Josseline Mathur NP [facility] [address] [place] [address] [place] [address] 06/07/2022 16:04:26 06/07/2022 17:02:41 History of intravenous drug abuse Fentanyl dependence [id number] Josseline Mathur NP [facility] [address] [place] [address] [place] [address] 06/21/2022 15:30:09 06/21/2022 16:08:57 Fentanyl dependence Opioid dependence, on agonist therapy [id number] Josseline Mathur NP [facility] [address] [place] [address] [place] [address] 07/19/2022 16:29:47 07/19/2022 17:00:14 Opioid dependence, on agonist therapy Toothache [id number] Josseline Mathur NP [facility] [address] [place] [address] [place] [address] 08/09/2022 16:43:00 08/09/2022 17:20:35 Opioid dependence, on agonist therapy [id number] Josseline Mathur NP [facility] [address] [place] [address] [place] [address] 08/21/2022 16:32:32 08/21/2022 17:39:55 Nausea Fentanyl dependence [id number] [facility]osseline Mathur [facility] [address] [place] [address] [place] [address] 11/01/2022 13:13:46 11/01/2022 13:50:14 Fentanyl dependence [id number] Josseline [facility]ur [facility] [address] [place] [phone] 12/04/2022 15:19:29 12/04/2022 16:06:31 Fentanyl dependence [id number] Josseline Mathur NP [facility] [address] [place] [id number] 12/18/2022 15:01:51 12/18/2022 15:26:22 Opioid dependence, on agonist therapy [id number] Josseline Mathur [facility] [address] [place] [id number] 01/10/2023 16:47:28 01/10/2023 17:28:43 Opioid dependence, on agonist therapy Generalized anxiety disorder [id number] Josseline Mathur [facility] [address] [place] [id number] 02/07/2023 16:59:51 02/07/2023 18:23:04 Opioid dependence, on agonist therapy Generalized anxiety disorder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
--- OUTSIDE RECORDS SUMMARY | 2023-11-12 16:37 | XMS_ITS | Clinical Summary ---
Author Name Unknown Organization [facility] Address [place], [place] [address] Care Team Providers Care Ream Cutter Name Role Phone Pcp, No Primary Care Provider Unavailabl e Allergies No known active allergies Medications Medication Sig Dispensed Refills Start Date End Date Status buPROPion (WELLBUTRIN XL) 300 mg Extended-Release tablet Take 300 mg by mouth once daily. 0 03/22/2022 Active lamoTRIgine (LAMICTAL) 100 mg tablet Take 1 Tablet (100 mg) by mouth once daily. 0 01/24/2023 Active Suboxone 12-[address] 1 film under the tongue every evening 0 01/10/2023 Active Active Problems Problem Noted Date Diagnosed Date Environmental allergies 02/23/2021 Hx of intravenous drug use in remission 02/05/20 21 History of heroin use 04/16/2019 IV drug user 04/16/2019 Sleep disturbance 04/16/2019 Overweight (BMI 25.0-29.9) 12/27/2017 Generalized anxiety disorder 06/27/2016 Tobacco use disorder, continuous 06/27/2016 Congenital pes planus 12/16/2010 Resolved Problems Problem Noted Date Diagnosed Date Resolved Date Acute respiratory failure 08/26/2021 Acute encephalopathy 08/26/2021 022 OD (overdose of drug) 08/26/20212021 Oth psychoactive substance a buse w mood disorder 02/04/2021 10/27/2021 Severe episode of recurrent major depressive disorder, without psychotic features 11/12/2019 Atypical squamous cells adam ot exclude high grade squamous intraepithelial lesion on cytologic smear of cervix (ASC-H) 05/20/20192021 Depression 09/14/2015 10/27/2021 Encounters Date Type Department Care Team Description 10/08/2023 2:15 PM DIRECTOR OF 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 Office Visit [facility] [address] [place] [address] Mell Mccullough MD Toe Pain/problem (infected ingrown toenail.) 10/08/2023 Travel 10/08/2023 Patient Outreach [facility] Care Management - Care Management Navigation/[facility] [address] [place] [id number] Ankit Villafuerte [facility] (Care Guide Community Resource Navigation/) 10/03/2023 11:30 AM DIRECTOR OF 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 Office Visit [facility] [address] [facility] [place] [address] Mell Mccullough MD Toenail (Infected ingrown left great toenail x1 month) 10/03/2023 Travel from Last 3 Months Immunizations Name Administration Dates Next Due COVID-19 vaccine (MobiPixie-J&J) KIMMY HAYWOOD COVID-19 vaccine (CloudTagsBio NTech 30mcg/0.3mL) KIMMY HAYWOOD 10/27/2021 DTP 01/26/1998,1997,1997 DTaP 12/25/2002, 3,01/26/1998,01/26,1997,1997,1997 ,1997 Dtap Unspecified Formulation 12/25/2002, 01/26/1998,1997,10/06 HIB PRP-T (ActHIB,Hiberix) 08/24/1998,,1997,10/06 HPV 9 (Gardasil 9) 03/02/2021,12/27/2017, 016 Hepatitis A (Adult) 04/11/2021 Hepatitis A (Peds) 06/27/2016 Hepatitis B (Peds) 01/26/1998,1997, 997 Hepatitis B, Unspecified 01/26/1998,1997,0 1997 Hib Conjugate, Unspecified 08/24/1998,,1997,10/06 Inactivated Polio Vaccine 12/25/2002,1997, 1997 Influenza A (H1N1), Inactivated 11/22/2009 Influenza Virus, Unspecified 06/27/2016, 06/27/2016,06/27/2016,08/23,08/23/2010,08/23/2010,08/23/2010 ,06/30/2009,06/30/2009,06/30/2009,06/03 Influenza, IIV3 (Age >=3 years) 08/23/2010,06/30 Influenza, IIV4 06/27/2016 Influenza, IIV4 (=>6mos) MDV 07/19/2022 MMR 12/25/2002,,08/24/1998,08/24 Meningococcal B 04/11/2021 Meningococcal Vaccine (Menactra) 06/27/2016,11/02 Meningococcal Vaccine (Menomune) 11/22/2009 Oral Polio Vaccine 1997,1997 Pneumococcal Poly,23-Valent (Pneumovax) 03/02/2021 Td, Preservative Free (age >= 7 Years) Tdap 01/08/2010,01/08/2010 Varicella Vaccine 01/12/2010,08/24/1998 Family History Medical History Relation Name Comments No Known Problems Brother 1 No Known Problems Brother 2 No Known Problems Brother 3 No Known Problems Brother 4 No Known Problems Brother 5 No Known Problems Brother 6 No Known Problems Father No Known Problems Mother Liver cancer Paternal Grandfather Cancer-breast Paternal Grandmother Relation Name Status Comments Brother 1 Alive Brother 2 Alive Brother 3 Alive Brother 4 Alive Brother 5 Alive Brother 6 Alive Father Alive Mother Alive Paternal Grandfather Paternal Grandmother Alive Social History Tobacco Use Types Packs/Day Years Used Date Smoking Tobacco: Every Day Cigarettes 0.2 14.1 Started: 10/01/2009 Smokeless Tobacco: Never Tobacco Cessation:Ready to Q uit: Yes; Counseling Given: Not Answered Comments:about 2 a day Alcohol Use Standard Drinks/Week Comments Not Currently 0 (1 standard drink = 0.6 oz pur e alcohol) sober since 03/2022 PHQ-2 Answer Date Recorded PHQ-2 TOTAL SCORE 4 01/24/2023 Social Connections Answer Date Recorded Frequency of Communication with Friends and Fami ly 0 10/03/2023 Financial Resource Strain Answer Date R ecorded Difficulty of Paying Living Expenses 1 10/03/2023 Difficulty of Paying Living Expenses 2 10/03/2023 Food Insecurity Answer Date Recorded Worried About Running Out of Food in the Last Ye ar 2 10/03/2023 Transportation Needs Answer Date Record ed Lack of Transportation (Medical) 1 10/03/2023 Housing Stability Answer Date Recorded Unable to Pay for Housing in the Last Year 1 10/03/2023 Sex and Gender Information Value Date Recorded Sex Assigned at Not on file Gender Identity Not on file Sexual Orientation Not on file Obstetrics History Last Filed Vital Signs Vital Sign Reading Time Taken Comments Blood Pressure 92/57 10/03/2023 11:30 AM DIRECTOR OF 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 Pulse 63 10/08/2023 2:22 PM DIRECTOR OF 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 Temperature 37.1 ??C (98.7 ??F) 01/24/2023 4:25 PM CD T Respiratory Rate - - Oxygen Saturation 98% 10/08/2023 2:22 PM DIRECTOR OF 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 Inhaled Oxygen Concentration - - Weight 66.1 kg (145 lb 11.6 oz) 10/08/2023 2:22 PM DIRECTOR OF 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 Height 155.2 cm (5' 1.1) 01/24/2023 4:25 PM CDT Body Mass Index 27.44 01/24/2023 4:25 PM CDT Plan of Treatment Health Maintenance Due Date Last Done Comments Pneumococcal series for age 6-64 (2 of 2 - PCV) 03/02/2022 03/02/2021 Pap test for age 21-65 11/06/2022 0 (Verified in Care Everywhere or Patient Record) COVID-19 vaccine series ( - 2022- season) 2023 10/27/2021, 02/17/2021 Influenza for age 9-49 06/01/2023 2, 06/27/2016, 06/27/2016, Additional history exists BMI (ht and wt on same day) for age 18+ 01/25/2024 01/24/2023, 10/27/2021 Depression screening for age 12+ 01/25/2024 01/25/20 23, 10/27/2021 Tetanus booster 03/02/2031 03/02/2021, 12/30, 01/08/2010 Tdap Completed 01/08/2010, 01/08/2010 HPV series for age 9-26 Completed 03/02/20 21, 12/27/2017, 06/27/2016 HIV for age 15-65 Completed 10/24/2022 Hepatitis C screening for ag e 18-79 Completed 10/24/2022 Care Teams Ream Cutter Relationship Specialty Start Date End Date Pcp, No . PCP - General 10/27/21
== END 2023-11-12 17:16 | disposition home or self-care (01) ==
LOC: ED 16:35
PROVIDERS: Emergency Provider Emergency Medicine
DX: K08.89 Other specified disorders of teeth and supporting structures (principal)
CPT/HCPCS: 99282; 99283

== ENCOUNTER 2025-08-25 16:38 | Emergency (ER) | payer BC, SELFPAY ==
[2025-08-25 16:43] VITALS: BP 120/80; PULSE 72; RESP 20; TEMP 36.6; O2SAT 99; BMI 24.0
[2025-08-25 16:45] VITALS: O2SAT 98
[2025-08-25] MEDS: EPINEPHrine 0.3 MG PEN IM (16:45)
[2025-08-25 16:50] VITALS: BP 111/66; PULSE 106; O2SAT 98
--- OUTSIDE RECORDS SUMMARY | 2025-08-25 17:01 | XMS_ITS | Clinical Summary ---
Author Organization [facility] Address [address] [place] [address] Care Team Providers Care Soil Technician Name Role Phone Mell Mccullough MD Primary Care Prov ider Allergies No known active allergies Medications lamoTRIgine (LAMICTAL) 100 mg tablet Take 1 Tablet (100 mg) by mouth once daily. 0 3 Active doxazosin (CARDURA) 2 mg tablet TAKE 1/2 TABLET BY MOUTH TWICE DAILY DIRECTED Active Narcan 4 mg/actuation nasal spray CALL 911. SPR CONTENTS OF ONE SPRAYER (0.1ML) INTO ONE NOSTRIL. REPEAT IN 2-3 MIN IF SYMPTOMS OF OPIOID EMERGENCY PERSIST, ALTERNATE NOSTRILS Active traZODone (DESYREL) 100 mg tablet 4 Active cetirizine (ZYRTEC) 10 mg tabletIndication s:Seasonal allergic rhinitis, unspecified trigger Take 1 Tablet (10 mg) by mouth once daily. 90 Tablet 3 4 Active methylphenidate (Daytrana) 20 mg/9 hr daily patch Apply 1 Patch on dry, clean, hairless skin once daily. Apply TOPICALLY 2 hours before needed effect and remove 9 hours after application. 4 Active buprenorphine-na loxone (SUBOXONE) 8-[address] 1 Film under the tongue once daily. Place film under the tongue until completely dissolved. Do not chew or swallow film. 4 Active fluticasone (50 mcg per actuation) nasal solution (FLONASE)Indicat ions:Seasonal allergic rhinitis, unspecified trigger SHAKE LIQUID AND USE 2 SPRAYS IN EACH NOSTRIL DAILY 48 g 5 Active Additional Information Patient not taking.Reported on 06/03/2025 Active Problems Problem Noted Date Diagnosed Date Pap smear of cervix with ASCUS, cannot exclude H GSIL 04/14/2024 Overview (06/12/2025): 05/2019 ASC-H 11/2019 NIL/HPV neg 03/2024 LSIL/HPV negative 05/2024 [place]: Focal atypia is seen in the squamous epithelium. The differential diagnosis includes reactive atypia (favored) versus a low grade squamous intraepithelial lesion (MELODY-1). 06/2025 NIL/HPV negative Plan: HPV-based testing due 06/2026 Environmental allergies 02/23/2021 Hx of intravenous drug use in remission 02/05/20 History of heroin use 04/16/2019 IV drug [...] Encounters Date Type Department Care Team Description 06/03/2025 4:30 PM CDT Ancillary Procedure [facility] [address] [place] [address] 06/03/2025 3:05 PM CDT Office Visit [facility] [address] [place] [address] Mell Mccullough MD Testing (Full STD screening asymptomatic ) 06/03/2025 Travel from Last 3 Months Immunizations Immunization Administration Dates Next Due COVID-19 vaccine ([employer]-J[employer]J) PF, MDV COVID-19 vaccine ([employer] 30mcg/0.3mL) PF, MDV 10/27/2021 DTP 01/26/1998,1997,1997 DTaP 12/25/2002, 3,01/26/1998,01/26,1997,1997,1997 ,1997 [...] 06/27/2016 Influenza, IIV4 (=>6mos) MDV 07/19/2022 MMR 12/25/2002, 3,08/24/1998,08/24 Meningococcal B 04/11/2021 Meningococcal Vaccine (Menactra) 06/27/2016,11/02 [...] Date Smoking Tobacco: Every Day Cigarettes 0.2 15.9 Started: 10/01/2009 Smokeless Tobacco: Never Tobacco Cessation:Ready to Q uit: Not Asked; Counseling Given: Not Answered Comments:about 2 a day Alcohol Use Standard Drinks/Week Comments Not Currently 0 (1 standard drink = 0.6 oz pur e alcohol) sober since 03/2022 PHQ-2 Answer Date Recorded PHQ-2 TOTAL SCORE 1 04/07/2024 Social Connections Answer Date Recorded Do you often feel lonely or isolated from those around you? 0 11/10/2024 Financial Resource Strain Answer Date R ecorded Difficulty of Paying Living Expenses 3 11/10/2024 Difficulty of Paying Living Expenses Not on file 11/10/2024 Food Insecurity Answer Date Recorded Do you worry your food will run out before you are able to buy more? 1 11/10/2024 Transportation Needs Answer Date Record ed Does lack of transportation keep you from medica l appointments? 1 11/10/2024 Does lack of transportation keep you from work, meetings or getting things that you need? 1 11/10/2024 Housing Stability Answer Date Recorded What is your housing situation today? 1 11/10/2024 Utilities Answer Date Recorded Do you have trouble paying f or utilities (for example, heat, electricity, water, phone)? 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 [employer] WE[employer] Height 155 cm (5' 1.02) 04/07/2024 2:09 PM CDT Body Mass Index 27.22 04/07/2024 2:09 PM CDT Plan of Treatment Health Maintenance Due Date Last Done Comments Pneumococcal series for age 6-49 (2 of 2 - PCV) 03/02/2022 03/02/2021 BMI (ht and wt on same day) for age 18+ 04/07/2025 04/07/2024, 01/24/2023, 10/27/2021 Depression screening for age 12+ 04/07/2025 04/07/2024, 01/24/2023, 10/27/2021 Influenza Vaccine (#1) 2025 2, 06/27/2016, 06/27/2016, Additional history exists Pap test for age 21-65 06/03/2026 5, 06/03/2025, 05/22/2024 (Verified in Care Everywhere or Patient Record), Additional history exists Tetanus booster 03/02/2031 03/02/2021, 04, 01/08/2010 RSV vaccine for adults or (1 - 1-dose 75+ series) 2072 Hepatitis B series for 19+ Completed 01/26, 01/26/1998, 1997, Additional history exists HPV series for age 9-45 Completed 03/02/20 21, 12/27/2017, 06/27/2016 HIV for age 15-65 Completed 06/03/2025, 10/24/2022 Hepatitis C screening for ag e 18-79 Completed 06/03/2025, 10/24/2022 Procedures Procedure Name Priority Date/Time Associated Diagnosis Comments XR HAND 3 VIEWS RIGHT Routine 06/03/2025 4:29 PM CDT Hand injury, right, initial encounter ANTI HCV Routine 06/03/2025 4:17 PM CDT Unprotected sexual intercourse HBSAG (HBS) Routine 06/03/2025 4:17 PM CDT Unprotected sexual intercourse TREPONEMA PALLIDUM Routine 06/03/2025 4: 17 PM CDT Unprotected sexual intercourse ANTI HIV 1/2 Routine 06/03/2025 4:17 PM CDT Unprotected sexual intercourse FACING SLITTER THIN PREP PAP SCREEN IMAGED Routine 06/03/2025 3:39 PM CDT Cervical cancer screening HPV HIGH RISK Routine 06/03/2025 3:39 PM CDT Cervical cancer screening URINE Routine 06/03/2025 3:39 PM CDT Unprotected sexual intercourse TRICHOMONAS, PAULINO, AND BACTERIAL VAGINOSIS BY CHIOMA Routine 06/03/2025 3:39 PM CDT Unprotected sexual intercourse GC CHLAMYDIA TRACH PROBE Routine 06/03/2025 3:39 PM CDT Unprotected sexual intercourse from Last 3 Months Results * XR HAND 3 VIEWS RIGHT (06/03/2025 4:29 PM CDT) Anatomical Region Laterality Modality HANDS, HAND R Computed Radiogr aphy 06/04/2025 12:1 2 PM CDT Narrative 06/04/2025 12:12 PM CDT For Patients: As a result of the Cures Act, medical imaging exams and procedure reports are released immediately into your electronic medical record. You may view this report before your referring provider. If you have questions, please contact your health care provider. Indication: Pain. Technique: Right hand 3 views. Comparison: None. Findings: No acute fracture or dislocation. No concerning bony lesion. No localized soft tissue swelling. Impression: No acute osseous abnormality. Dictated by Ying Norton MD @ 06/04/2025 12:12:20 PM (Electronically Signed) Procedure Note Ying Norton MD - 06/04/2025 For Patients: As a result of the Cures Act, medical imagingexams and procedure reports are released immediately into your electronicmedical record. You may view this report before your referring provider.If you have questions, please contact your health care provider. Indication: Pain. Technique: Right hand 3 views. Comparison: None. Findings: No acute fracture or dislocation. No concerning bony lesion. No localizedsoft tissue swelling. Impression: No acute osseous abnormality. Dictated by Ying Norton MD @ 06/04/2025 12:12:20 PM (Electronically Signed) Mell Mccullough MD GENERAL IMAGING Fi nal Result * TREPONEMA PALLIDUM [93792.1] (06/03/2025 4:17 PM CDT) TREPONEMA PALLIDUM Non-Reacti ve Non-Reacti ve 06/03/2025 10:58 PM CDT [facility] Blood BLOOD SPECIMEN / Unknown [facility] Collect / Unknown 06/03/2025 4:17 PM CDT 06/03/2025 4:17 PM CDT Mell Mccullough MD SEND OUTS Fi nal Result [facility] [address] [place] [address], * HBSAG (HBS) [61465.2] (06/03/2025 4:17 PM CDT) HEPATITIS B SURFACE ANTIGEN NON-REACT ESTEBAN NON-REACT ESTEBAN 06/04/2025 1:30 PM CDT [facility] Comment: For additional information, please refer to http://[employer]/faq/AIL874 (This link is being provided for informational/ educational purposes only.) Blood BLOOD SPECIMEN / Unknown [facility] / Unknown 06/03/2025 4:17 PM CDT 06/03/2025 4:17 PM CDT Mell Mccullough MD SEND OUTS Fi nal Result Performing Organization Address [facility] de Phone Number [facility] [address] [address], * ANTI HCV [30917.2] (06/03/2025 4:17 PM CDT) HEPATITIS C ANTIBODY NON-REACT ESTEBAN NON-REACT ESTEBAN 06/04/2025 1:58 PM CDT [facility] Comment: HCV antibody was non-reactive. There is no laboratory evidence of HCV infection. In most cases, no further action is required. However, if recent HCV exposure is suspected, a test for HCV RNA (test code 29892) is suggested. For additional information please refer to http://[employer]/faq/HAM28s6 (This link is being provided for informational/ educational purposes only.) Blood BLOOD SPECIMEN / Unknown [facility] / Unknown 06/03/2025 4:17 PM CDT 06/03/2025 4:17 PM CDT Mell Mccullough MD SEND OUTS Fi nal Result Performing Organization Address [facility] de Phone Number [facility] [address] [address], [place] [phone] * ANTI HIV 1/2 [81414.0] (06/03/2025 4:17 PM CDT) HIV FINAL INTERPRETATOIN SEE NOTE 06/04/2025 1:30 PM CDT [facility] Comment: HIV Negative HIV-1 antigen and HIV-1/HIV-2 antibodies were not detected. There is no laboratory evidence of HIV infection. HIV AG/AB, 4TH GEN NON-REACT ESTEBAN NON-REACT ESTEBAN 06/04/2025 1:30 PM CDT [facility] Blood BLOOD SPECIMEN / Unknown [facility] / Unknown 06/03/2025 4:17 PM CDT 06/03/2025 4:17 PM CDT Mell Mccullough MD SEND OUTS Fi nal Result [facility] [address] [address], * TRICHOMONAS, PAULINO, AND BACTERIAL VAGINOSIS BY CHIOMA [[id number]] - vaginal (06/03/2025 3:39 PM CDT) PAULINO SPECIES Negative Negative 10:45 AM CDT [facility] PAULINO GLABRATA Negative Negative 06/04/2025 10:45 AM CDT [facility] TRICHOMONAS VVA Negative Negative 10:45 AM CDT [facility] BACTERIAL VAGINOSIS Negative Negative 06/04/2025 10:45 AM CDT [facility] Other VAGINAL SWAB / Unknown Non-Blood / Unknown 06/03/2025 3:39 PM CDT 06/03/2025 4:04 PM CDT Mell Mccullough MD MICROBIOLOGY Fi nal Result [facility] [address] [place] [address], [place] * FACING SLITTER THIN PREP PAP SCREEN IMAGED (06/03/2025 3:39 PM CDT) Case Report Gynecologic Cytology Report Case: [id number] Authorizing Provider: Mell Mccullough Collected: 06/03/2025 1539 MD Zayda Ordering Location: [facility] Received: 06/03/2025 1604 Clinic First Screen: Tanna Oseguera Rescreen: Cherry Shea Pathologist: Colin Barajas Jr., MD Specimen: FACING SLITTER ThinPrep Vial Screening, Cervical 06/12/2025 3:26 PM CDT [facility] [employer] [facility] INTERPRETATION/ RESULT NEGATIVE FOR INTRAEPITHELIAL LESION OR MALIGNANCY (NIL) (none) 06/12/2025 3:26 PM CDT [facility] at 1526 CDT OTHER NON-NEOPLASTIC FINDING(S) Reactive cellular changes associated with inflammation/repa ir 06/12/2025 3:26 PM CDT [facility] SPECIMEN ADEQUACY Satisfactory for evaluation Endocervical component present 06/12/2025 3:26 PM CDT [facility] HPV REQUEST HPV and PAP 06/12/2025 3:26 PM CDT [facility] Date of LMP 06/02/2025 06/12/2025 3:26 PM CDT [facility] Last Pap Date 04/07/2024 06/12/2025 3:26 PM CDT [facility] Last Pap Result LSIL 3:26 PM CDT [facility] Abnormal Pap or [place] Bx in last 5 years No 06/12/2025 3:26 PM CDT [facility] Menstrual Status Regular Periods 06/12/2025 3:26 PM CDT [facility] [place] Bx Done Today No 06/12/2025 3:26 PM CDT [facility] Additional Information None given 06/12/2025 3:26 PM CDT [facility] Comment: Cytology is screened at [facility], [place] [facility] - [address], [place] [address] and [facility] - [address] [place] [address], [place] [address] and [facility] - [address] [place] [address] Interpreted at [facility] - [address], [place] [address] Automated Review Successful 06/12/2025 3:26 PM CDT [facility] Comment:Specimen processed s uccessfully by automated physical chemistry teacher device, ThinPrep Imaging System, [employer] ANCILLARY TESTING FACING SLITTER HPV Ordered, Please see separate report 06/12/2025 3:26 PM CDT [facility] Note The pap test is a screening technique, not a diagnostic procedure. It is used primarily to screen for squamous cancers and precursor lesions. Published studies have shown that it is subject to both false negative and false positive results. The pap test should not be used as the sole means to diagnose or exclude pre-malignant and malignant lesions. 06/12/2025 3:26 PM CDT [facility] Other (Cervical) Non-Blood / Unknown 06/03/2025 3:39 PM CDT 06/03/2025 4:04 PM CDT Mell Mccullough MD PATHOLOGY/CYTOLOGY Final Result [facility] [address] [place] [address], [place] * GC CHLAMYDIA TRACH PROBE [[id number]] - vaginal (06/03/2025 3:39 PM CDT) CHLAMYDIA PROBE Negative 11:17 AM CDT [facility] N GONORRHOEAE PROBE Negative 06/04/2025 11:17 AM CDT [facility] Other VAGINAL SWAB / Unknown Non-Blood / Unknown 06/03/2025 3:39 PM CDT 06/03/2025 4:04 PM CDT us Mell Mccullough MD MICROBIOLOGY Fi nal Result [facility] [address] [place] [address], * HPV HIGH RISK (06/03/2025 3:39 PM CDT) TYPE 16 Negative Negative 06/08/2025 3:51 PM CDT [facility] TYPE 18 Negative Negative 06/08/2025 3:51 PM CDT [facility] OTHER HIGH RISK TYPES Negative Negative 06/08/2025 3:51 PM CDT [facility] Other (Cervical) Non-Blood / Unknown 06/03/2025 3:39 PM CDT 06/04/2025 4:57 PM CDT Narrative [facility] - 06/08/2025 3:51 PM CDT HPV types 16, 18, 31, 33, 35, 39, 45, 51, 52, 56, 58, 59, 66 and 68 DNA were undetectable or below the pre-set threshold. Methodology: Suzi David 4800 HPV Test Mell Mccullough MD MICROBIOLOGY Fi nal Result Performing Organization Address City/[facility]/ZIP Co de Phone Number [facility] [address] [place] [address], * URINE (06/03/2025 3:39 PM CDT) HCG, QL, URINE NEGATIVE NEGATIVE 06/04/2025 10:29 AM CDT [facility] Urine URINE SPECIMEN / Unknown Non-Blood / Unknown 06/03/2025 3:39 PM CDT 06/03/2025 4:05 PM CDT Mell Mccullough MD URINE Fi nal Result [facility] [address] [address], from Last 3 Months Insurance [facility] Care Teams Soil Technician Relationship Specialty Start Date End Date Mell Mccullough MD PCP - General Family Practice 04/07/24
--- OUTSIDE RECORDS SUMMARY | 2025-08-25 17:01 | XMS_ITS | Clinical Summary ---
Author Organization [place] Address [facility] [place] [address] Care Team Providers Care Metaphysicist Name Role Phone No Ref-Primary, Physician Primary Care Provider Allergies No known active allergies Medications citalopram (CELEXA) 20 MG tablet Take 20 mg by mouth Active cetirizine (ZYRTEC) 10 MG tablet TAKE 1 TABLET BY MOUTH ONE TIME A DAY. 04/23/2021 Active buPROPion (WELLBUTRIN XL) 150 MG 24 hr tablet Take 150 mg by mouth 02/23/2021 Active QUEtiapine (SEROQUEL) 50 MG tablet Take 50 mg by mouth 07/01/2021 Active GABAPENTIN PO Take by mouth daily Active Active Problems No known active problems Immunizations Immunization Administration Dates Next Due COVID-19 Vaccine (Srikanth) 02/17/2021 DTAP (<7y) 12/25/2002, 8,1997,10/06 DTaP, Unspecified 12/25/2002, 8,1997,10/06 HIB (PRP-T) 08/24/1998, 8,1997,10/06 HIB, Unspecified 08/24/1998, 8,1997,10/06 HPV9 (Gardasil) 12/27/2017,06/27/2016 HepB, Unspecified 01/26/1998,1997,06/29/19 97 Hepatitis A (Vaqta/Havrix)(P eds 12m-18y) 06/27/2016 Hepatitis B, Peds (Engerix-B/Recombivax HB) 01/26/1998,1997,1997 Historical DTP/aP 01/26/1998,1997,10/06/18 98 Influenza (H1N1) 11/22/2009 Influenza (IIV3) PF 08/23/2010,06/30/2009 Influenza Vaccine >6 months,quad, PF 06/27/2016 MMR (MMRII) 12/25/2002,08/24/1998 Meningococcal (Menomune ) 11/22/2009 Meningococcal ACWY (Menactra ) 06/27/2016,11/22/2009 OPV, trivalent, live 1997,1997 Poliovirus, inactivated (IPV) 12/25/2002, 998,1997 TDAP Vaccine (Adacel) 01/08/2010 Varicella (Varivax) 01/12/2010,08/24/1998 Social History Tobacco Use Types Packs/Day Years Used Date Smoking Tobacco: Every Day Cigarettes Smokeless Tobacco: Never Tobacco Cessation:Ready to Q uit: No; Counseling Given: No Alcohol Use Standard Drinks/Week Comments Not Currently 0 (1 standard drink = 0.6 oz pur e alcohol) PHQ-2 Answer Date Recorded PHQ-2 Score 0 06/10/2021 Adolescent Education Answer Date Record ed Getting School Help Needed Not on file 06/23 Comments No Sex and Gender Information Value Date Recorded Sex Assigned at Not on file Legal Sex Female 3:02 PM CDT Gender Identity Not on file Sexual Orientation Not on file Last Filed Vital Signs Vital Sign Reading Time Taken Comments Blood Pressure 113/76 08/06/2021 7:52 PM CDT Pulse 77 08/06/2021 7:52 PM CDT Temperature 37.3 C (99.2 F) 08/06/2021 5:14 PM CDT Respiratory Rate 18 08/06/2021 5:14 PM CDT Oxygen Saturation 98% 08/06/2021 7:52 PM CDT Inhaled Oxygen Concentration - - Weight 72.6 kg (160 lb) 08/06/2021 5:20 PM CDT Height 153.7 cm (5' 0.5) 06/10/2021 1:45 PM CDT Body Mass Index 30.73 06/10/2021 1:45 PM CDT Plan of Treatment Not on file Insurance [facility] Care Teams Metaphysicist Relationship Specialty Start Date End Date No Ref-Primary, Physician PCP - General 02/10/21
--- OUTSIDE RECORDS SUMMARY | 2025-08-25 17:01 | XMS_ITS | Patient Health Record ---
Author Organization [facility] Address [address] [place] [address] Care Team Providers Care Dealership Manager Name Role Phone Tamie James Unavailable [phone] Reason For Referral No Information Medications Medication SIG (Take, Route, Frequency, Duration) Notes Start Date End Date Status Amoxicillin 500 MG Capsule Oral Active Citalopram Hydrobromide 20 MG Tablet Oral Active Citalopram Hydrobromide 10 MG Tablet Oral Active Ciprofloxacin HCl 0.30% Solution Ophthalmic Active Amoxicillin-Pot Clavulanate 875-125 MG Tablet Oral Active Melatonin 3 MG Tablet Oral Active buPROPion HCl ER (XL) 150 MG Tablet Extended Release 24 Hour Oral Active ProAir HFA 108 (90 Base) MCG/ACT Aerosol Solution Inhalation *Reorder from Brain in Hand for eRx and Interaction Alerts* Active Acyclovir 400 MG Tablet Oral Active QUEtiapine Fumarate 50 MG Tablet Oral Active Lidocaine Viscous 2 % Solution Mouth/Throat *Reorder from Brain in Hand for eRx and Interaction Alerts* Active lamoTRIgine 25 MG Tablet Oral Active hydrOXYzine HCl 25 MG Tablet Oral Active lamoTRIgine 150 MG Tablet Oral Active lamoTRIgine 100 MG Tablet Oral Active Cetirizine HCl 10 MG Tablet Oral Active Diclofenac Sodium 1% Gel Transdermal Active Fluconazole 150 MG Tablet Oral Active Anbesol 10 % Gel Mouth/Throat *Reorder from Brain in Hand for eRx and Interaction Alerts* Active traZODone HCl 50 MG Tablet Oral Active METRONIDAZOLE 0.75 % (37.5 MG/5 GRAM) VAGINAL GEL *Reorder from Brain in Hand for eRx and Interaction Alerts* Active Naltrexone HCl 50 MG Tablet Oral Active cloNIDine HCl 0.1 MG Tablet Oral Active Problems Problem Type SNOMED Code ICD Code Onset Dates Problem Status W/U Status Risk Notes Problem Visual field defect (86756439) Unspecified visual field defects (H53.40) 04/15/2021 Active confirmed Plan Of Treatment No Information Insurance Providers Payer Name Payer Address Payer Phone Subscriber Number Group Number Insured Name Patient Relationship to Insured Coverage Start Date Coverage End Date [place] - [employer] [facility] [address] [address] [place], [place] [id number] MISHRA Self - patient is the insured
[2025-08-25 17:10] VITALS: BP 123/71; PULSE 92; RESP 16; O2SAT 99
[2025-08-25] MEDS: 0.9 % SODIUM CHLORIDE 500 ML 500 ML IV (17:15)
[2025-08-25] MEDS: FAMOTIDINE 10 MG/ML inj 20 MG IVP (17:18)
[2025-08-25] MEDS: METHYLPREDNISOLONE SOD SUCC 62.5 MG/ML (125) 125 MG IVP (17:20)
[2025-08-25 17:30] VITALS: BP 113/73; PULSE 67; RESP 16; O2SAT 98
[2025-08-25 18:30] VITALS: BP 101/68; PULSE 54; RESP 16; O2SAT 98
--- NOTE | 2025-08-25 18:35 | ED.ALLEREA ---
HPI - Allergic Reaction General Date Seen: 08/25/25 Chief complaint: Allergic Reaction Stated complaint: Allergic reaction, throat swelling Time Seen by Provider: 08/25/25 16:50 Source: patient Mode of arrival: ambulatory Limitations: no limitations History of Present Illness HPI narrative: Patient is an 30-year-old female presenting for concerns of an allergic reaction. She has no known allergies that she is aware of. Has never had allergic reaction before. States today she was eating a Brownie she got from her school. She thinks she might be allergic to when the ingredients but is unsure. This happened shortly prior to arrival. After she ate about he has it out because she thought was gross and then started having symptoms. Noticed hives on her back and back of her hands along with swelling of her eyes. Also feels like her throat is swelling up and she has some mild chest tightness. Also states she has some mild abdominal discomfort. Has never had symptoms like this before. Denies any recent changes to medications, soaps, detergents, medications or anything else that could possibly cause this allergic reaction. Related Data Home Medications ?Medication ?Instructions ?Recorded ?Confirmed bupropion HCl 150 mg 24 hr tablet, 150 mg PO DAILY 10/01/22 11/12/23 extended release bupropion HCl 300 mg 24 hr tablet, 300 mg PO DAILY 10/01/22 11/12/23 extended release lamotrigine 100 mg tablet 100 mg PO DAILY 10/01/22 11/12/23 naloxone 4 mg/actuation nasal spray intranasal 10/01/22 buprenorphine 8 mg-naloxone 2 mg 10 mg sublingual BID 11/12/23 11/12/23 sublingual film (Suboxone) doxazosin 2 mg tablet 1 mg PO BID 11/12/23 11/12/23 methylphenidate HCl 20 mg tablet 20 mg PO BID 11/12/23 11/12/23 trazodone 100 mg tablet 200 mg PO DAILY 11/12/23 11/12/23 Previous Rx's ?Medication ?Instructions ?Recorded epinephrine 0.3 mg/0.3 mL 0.3 mg (0.3 mL) IM Q5-15M PRN #2 ea 08/25/25 injection, auto-injector prednisone 20 mg tablet 40 mg (2 x 20 mg) PO DAILY #8 tabs 08/25/25 Allergies Allergy/AdvReac Type Severity Reaction Status Date / Time No Known Drug Allergies Allergy Verified 11/12/23 13:48 Review of Systems Status of ROS Reports: 10 or more systems reviewed and unremarkable except as noted in History and below PFSH PFS Social History Smoking Status: Current every day smoker What tobacco products do you use: cigarettes Do you use any of these nicotine containing products: Vaping Products Second hand tobacco smoke exposure: No How often do you have a drink containing alcohol: never AUDIT-C Alcohol total score: 0 Non-prescribed substance use: former substance user service: No Exam Narrative: Exam Narrative: Const: Well-nourished, Well-developed, in moderate distress Eyes: PERRL, no conjunctival injection, some swelling noted around her eyes HENT: Atraumatic external nose and ears. Moist mucous membranes. Neck: Symmetric, trachea midline, No thyromegaly. CVS: RRR, No murmurs or gallops. Peripheral pulses 2+ and equal in all extremities RESP: Unlabored respiratory effort. Clear to auscultation bilaterally. GI: Nontender/Nondistended, No rebound or guarding. MSK:Extremities w/o deformity, Normal Active ROM Skin: Warm, Dry. Small hive cm the back of her hands in the larger singular hives seen in the left lower portion of her back. Neuro: Normal Muscle tone, No focal neurological deficits. Psych: Awake, Alert, & Oriented x3. Appropriate mood and affect. Const: Vital Signs, click to edit/add: Vital Signs - 24 hr 08/25/25 16:43 08/25/25 16:45 08/25/25 16:50 Temperature 97.8 F Pulse Rate [Pulse Oximeter] 72 106 H Respiratory Rate 20 Blood Pressure [Ri ght Upper Arm] 120/80 111/66 Pulse Oximetry 99 98 98 Oxygen Delivery Me thod Room Air Room Air 08/25/25 17:10 08/25/25 17:30 Temperature Pulse Rate [Pulse Oximeter] 92 67 Respiratory Rate 16 16 Blood Pressure [Ri ght Upper Arm] 123/71 113/73 Pulse Oximetry 99 98 Oxygen Delivery Me thod Room Air Room Air Course Vital Signs Vital signs: Initial Vital Signs Temperature 97.8 F 08/25/25 16:43 Temperature Source Temporal Artery Scan 08/25/25 16:43 Pulse Rate 72 11/25/25 16:43 Respiratory Rate 20 08/25/25 16:43 Blood Pressure 120/80 08/25/25 16:43 Blood Pressure Mean 93 08/25/25 16:43 Blood Pressure Position Sitting 08/25/25 16:43 Pulse Oximetry 99 08/25/25 16:43 Oxygen Delivery Method Room Air 08/25/25 16:43 Vital Signs Temperature 97.8 F 08/25/25 16:43 Pulse Rate 72 08/25/25 16:43 Respiratory Rate 20 08/25/25 16:43 Blood Pressure 120/80 08/25/25 16:43 Pulse Oximetry 99 08/25/25 16:43 Oxygen Delivery Method Room Air 08/25/25 16:43 Temperature 97.8 F 08/25/25 16:43 Pulse Rate 67 08/25/25 17:30 Respiratory Rate 16 08/25/25 17:30 Blood Pressure 113/73 08/25/25 17:30 Pulse Oximetry 98 08/25/25 17:30 Oxygen Delivery Method Room Air 08/25/25 17:30 Medications Administered Medications: Discontinued Medications Generic Name Dose Route Start Last Admin Trade Name Freq PRN Reason Stop Dose Admin Diphenhydramine HCl 50 mg 08/25/25 16:51 08/25/25 17:16 Diphenhydramine 50 Mg/Ml Inj IVP 08/25/25 16:52 50 mg ONCE ONE Administration Epinephrine HCl 0.3 mg 08/25/25 16:58 08/25/25 16:45 Epinephrine 0.3 Mg Pen IM 08/25/25 16:59 0.3 mg ONCE ONE Administration Famotidine 20 mg 08/25/25 16:51 08/25/25 17:24 Famotidine 20 Mg Tablet PO 08/25/25 16:52 Not Given ONCE ONE Famotidine 20 mg 08/25/25 16:58 08/25/25 17:18 Famotidine 10 Mg/Ml Inj IVP 08/25/25 16:59 20 mg ONCE ONE Administration Sodium Chloride 500 mls @ 500 mls/hr 08/25/25 17:09 08/25/25 18:00 0.9 % Sodium Chloride 500 Ml IV 08/25/25 18:08 0 mls/hr .Q1H ABIEL Infusion Methylprednisolone Sodium Succinate 125 mg 08/25/25 16:51 08/25/25 17:20 Methylprednisolone Sod Succ 62.5 Mg/Ml (125) IVP 08/25/25 16:52 125 mg ONCE ONE Administration MDM - Allergic Reaction MDM Narrative Medical decision making narrative: Patient is a 30-year-old female presenting for an apparent anaphylaxis. She meets criteria with her symptoms along with having a rash. I saw her in the triage box and had nursing staff going get epinephrine immediately. She was having stable vital signs at this time. She was brought back to a levine bed and she was given Solu-Medrol, Benadryl, Pepcid and some fluids. After medication she is feeling much better. I have seem to have gone away. Swelling on her ice is also improved. Anaphylaxis seems to have resolved. Patient was monitored for 2 hours after epinephrine in symptoms do not return. She is doing well at this time and is safe for discharge. Discharge Plan Discharge Clinical Impression: Anaphylaxis Qualifiers: Encounter type: initial encounter Qualified Code(s): T78.2XXA - Anaphylactic shock, unspecified, initial encounter Patient Disposition: Home, Self-Care Condition: Improved Instructions: General Allergic Reaction (ED) Additional Instructions: An EpiPen will be sent to your pharmacy. Also send 4 more days of steroids to help prevent any rebound reaction. Start taking the steroids tomorrow 08/26/2025. You take Pepcid for rashes and Benadryl for any itchiness. Return to emergency department for new or worsening symptoms Prescriptions: New epinephrine 0.3 mg/0.3 mL auto-injector 0.3 mg IM Q5-15M PRNQty: 2 0RF Rx Instructions: do not exceed 3 doses per episode prednisone 20 mg tablet 40 mg PO DAILY Qty: 8 0RF No Action methylphenidate HCl 20 mg tablet 20 mg PO BID trazodone 100 mg tablet 200 mg PO DAILY doxazosin 2 mg tablet 1 mg PO BID buprenorphine-naloxone [Suboxone] 8-2 mg film 10 mg sublingual BID bupropion HCl 150 mg tablet extended release 24 hr 150 mg PO DAILY Patient Comments: TAKE 1 TABLET BY MOUTH DAILY bupropion HCl 300 mg tablet extended release 24 hr 300 mg PO DAILY Patient Comments: TAKE 1 TABLET BY MOUTH DAILY lamotrigine 100 mg tablet 100 mg PO DAILY Patient Comments: TAKE 1 TABLET BY MOUTH DAILY naloxone 4 mg/actuation spray,non-aerosol INTRANASAL Patient Comments: CALL 911. SPR CONTENTS OF ONE SPRAYER (0.1ML) INTO ONE NOSTRIL. REPEAT IN 2-3 MIN IF SYMPTOMS OF OPIOID EMERGENCY PERSIST, ALTERNATE NOSTRILS Follow Up/Referrals: Provider,Not a Local [Primary Care Provider, Family Practice] Stand Alone Forms: PROSimity Info Instructions
== END 2025-08-25 18:51 | disposition home or self-care (01) ==
PROVIDERS: Emergency Provider Student in an Organized Health Care Education/Training Program; PCP Student in an Organized Health Care Education/Training Program
DX: L50.9 Urticaria, unspecified (principal); T78.00XA Anaphylactic reaction due to unspecified food, initial encounter
CPT/HCPCS: 94761; 96372; 96374; 96375; 99284; 99285; J0169; J1200; J1308; J2919; J7030

== ENCOUNTER 2025-08-28 13:01 | Emergency (ER) | payer BC, SELFPAY ==
--- OUTSIDE RECORDS SUMMARY | 2025-08-28 13:03 | XMS_ITS | Clinical Summary ---
Author Organization [place] Address [facility] [place] [address] Care Team Providers Care Unit Assembler Name Role Phone No Ref-Primary, Physician Primary [...] Plan of Treatment Not on file Insurance [facility] Care Teams Unit Assembler Relationship Specialty Start Date End Date No Ref-Primary, Physician PCP - General 02/10/21
--- OUTSIDE RECORDS SUMMARY | 2025-08-28 13:03 | XMS_ITS | Clinical Summary ---
Author Organization [facility] Address [address] [place] [address] Care Team Providers Care Equipment Records Supervisor Name Role Phone Mell Mccullough MD Primary [...] 11/2019 NIL/HPV neg 03/2024 LSIL/HPV negative 05/2024 [place]: Focal atypia is seen in the squamous [...] Encounters Date Type Department Care Team Description 08/26/2025 11:35 AM PHYSICAL ANTHROPOLOGIST Telemedicine [facility] [address] [place] [address] Herb Paige MD Allergic Reaction 06/03/2025 4:30 PM CDT Ancillary Procedure [facility] [address] [place] [address] 06/03/2025 3:05 PM CDT Office Visit [facility] [address] [place] [address] Mell Mccullough MD Testing (Full STD screening asymptomatic ) 06/03/2025 Travel from Last 3 Months Immunizations Immunization Administration Dates Next Due COVID-19 vaccine (MogoTix-J&J) PF, MDV COVID-19 vaccine (Vestor-Bio NTech 30mcg/0.3mL) PF, MDV 10/27/2021 DTP 01/26/1998,1997,1997 [...] on file Legal Sex Female 12:01 PM PHYSICAL ANTHROPOLOGIST Gender Identity Not on file Sexual Orientation [...] kg (144 lb 3.2 oz) 11/10/2024 1:41 PM PHYSICAL ANTHROPOLOGIST Height 155 cm (5' 1.02) 04/07/2024 2:09 PM CDT Body Mass Index 27.22 04/07/2024 2:09 PM CDT Plan of Treatment Upcoming Encounters Date Type Department Care Team (Late st Contact Info) Description 09/10/2025 2:05 PM PHYSICAL ANTHROPOLOGIST Office Visit [facility] [address] [place], [place] [id number] Mal Walters MBBS [address] [place], [place] [id number] Health Maintenance Due Date Last Done Comments Pneumococcal series for age 6-49 (2 of 2 - PCV) 03/02/2022 03/02/2021 BMI (ht and wt on same day) for age 18+ 04/07/2025 04/07/2024, 01/24/2023, 10/27/2021 Depression screening for age 12+ 04/07/2025 04/07/2024, 01/24/2023, 10/27/2021 COVID-19 vaccine series ( season) 2025 10/27/2021, 02/17/2021 Influenza Vaccine (#1) 2025 2, 06/27/2016, 06/27/2016, [...] 06/03/2025 4:17 PM CDT Unprotected sexual intercourse DEPUTY CLERK THIN PREP PAP SCREEN IMAGED Routine 06/03/2025 [...] MD @ 06/04/2025 12:12:20 PM (Electronically Signed) us Mell Mccullough MD GENERAL IMAGING Fi nal Result * TREPONEMA PALLIDUM [73093.1] (06/03/2025 4:17 PM CDT) TREPONEMA PALLIDUM Non-Reacti ve Non-Reacti ve 06/03/2025 10:58 PM CDT [facility] Blood BLOOD SPECIMEN / Unknown [facility] / Unknown 06/03/2025 4:17 PM CDT 06/03/2025 4:17 PM CDT Mell Mccullough MD SEND OUTS Fi nal Result [facility] [address] [place] [address], * HBSAG (HBS) [45579.2] (06/03/2025 4:17 PM CDT) HEPATITIS B SURFACE ANTIGEN NON-REACT ESTEBAN NON-REACT ESTEBAN 06/04/2025 1:30 PM CDT [facility] Comment: For additional information, please refer to http://education.[employer]/faq/DZT574 (This link is being provided for informational/ educational purposes only.) Blood BLOOD SPECIMEN / Unknown [facility] / Unknown 06/03/2025 4:17 PM CDT 06/03/2025 4:17 PM CDT Mell Mccullough MD SEND OUTS Fi nal Result [facility] [address] [address], * ANTI HCV [06010.2] (06/03/2025 4:17 PM CDT) HEPATITIS C ANTIBODY NON-REACT ESTEBAN NON-REACT ESTEBAN 06/04/2025 1:58 PM CDT [facility] Comment: HCV antibody was non-reactive. There is no laboratory evidence of HCV infection. In most cases, no further action is required. However, if recent HCV exposure is suspected, a test for HCV RNA (test code 28446) is suggested. For additional information please refer to http://education.[employer].FPSI/faq/RWU47o5 (This link is being provided for informational/ educational purposes only.) Blood BLOOD SPECIMEN / Unknown [facility] / Unknown 06/03/2025 4:17 PM CDT 06/03/2025 4:17 PM CDT Mell Mccullough MD SEND OUTS Fi nal Result Performing Organization Address [place] de Phone Number [facility] [address] [address], * ANTI HIV 1/2 [32688.0] (06/03/2025 4:17 PM CDT) HIV FINAL INTERPRETATOIN SEE NOTE 06/04/2025 1:30 PM CDT [facility] Comment: HIV Negative HIV-1 antigen and HIV-1/HIV-2 antibodies were not detected. There is no laboratory evidence of HIV infection. HIV AG/AB, 4TH GEN NON-REACT ESTEBAN NON-REACT ESTEBAN 06/04/2025 1:30 PM CDT [facility] Blood BLOOD SPECIMEN / Unknown [facility] / Unknown 06/03/2025 4:17 PM CDT 06/03/2025 4:17 PM CDT Mell Mccullough MD SEND OUTS Fi nal Result Performing Organization Address [place] de Phone Number [facility] [address] [address], [place] [phone] * TRICHOMONAS, PAULINO, AND BACTERIAL VAGINOSIS BY CHIOMA [[id number]] - vaginal (06/03/2025 3:39 PM CDT) PAULINO SPECIES Negative Negative 10:45 AM CDT [facility] PAULINO GLABRATA Negative Negative 06/04/2025 10:45 AM CDT [facility] TRICHOMONAS VVA Negative Negative 10:45 AM CDT [facility] BACTERIAL VAGINOSIS Negative Negative 06/04/2025 10:45 AM CDT [facility] Other VAGINAL SWAB / Unknown Non-Blood / Unknown 06/03/2025 3:39 PM CDT 06/03/2025 4:04 PM CDT Mell Mccullough MD MICROBIOLOGY Fi nal Result [facility] [address] [place] [address], * DEPUTY CLERK THIN PREP PAP SCREEN IMAGED (06/03/2025 3:39 PM CDT) Case Report Gynecologic Cytology Report Case: [id number] Authorizing Provider: Mell Mccullough Collected: 06/03/2025 1539 MD Zayda Ordering Location: [facility] Received: 06/03/2025 1604 Clinic First Screen: Tanna Oseguera Rescreen: Cherry Shea Pathologist: Colin Barajas Jr., MD Specimen: DEPUTY CLERK ThinPrep Vial Screening, Cervical 06/12/2025 3:26 PM CDT [facility] INTERPRETATION/ RESULT NEGATIVE FOR INTRAEPITHELIAL LESION OR MALIGNANCY (NIL) (none) 06/12/2025 3:26 PM CDT [facility] at 1526 CDT OTHER NON-NEOPLASTIC FINDING(S) Reactive cellular changes associated with inflammation/repa ir 06/12/2025 3:26 PM CDT [facility] SPECIMEN ADEQUACY Satisfactory for evaluation Endocervical component present 06/12/2025 3:26 PM CDT [facility] HPV REQUEST HPV and PAP 06/12/2025 3:26 PM CDT [facility] Date of LMP 06/02/2025 06/12/2025 3:26 PM CDT [facility] Last Pap Date 04/07/2024 06/12/2025 3:26 PM CDT [facility] Last Pap Result LSIL 3:26 PM CDT [facility] Abnormal Pap or [place] Bx in last 5 years No 06/12/2025 3:26 PM CDT [facility] Menstrual Status Regular Periods 06/12/2025 3:26 PM CDT [facility] [place] Bx Done Today No 06/12/2025 3:26 PM CDT [facility] Additional Information None given 06/12/2025 3:26 PM CDT [facility] Comment: Cytology is screened at [facility] - [address], [place] [address] and [facility] - [address], [place] [address] and [facility] - [address] [place] [address] [facility] - [address], [place] [address] Automated Review Successful 06/12/2025 3:26 PM CDT [facility] Comment:Specimen processed s uccessfully by automated fish and game warden device, ThinPrep Imaging System, [employer] ANCILLARY TESTING DEPUTY CLERK HPV Ordered, Please see separate report 06/12/2025 3:26 PM CDT [facility] Note The pap test is [...] and malignant lesions. 06/12/2025 3:26 PM CDT [facility] Other (Cervical) Non-Blood / Unknown 06/03/2025 3:39 PM CDT 06/03/2025 4:04 PM CDT Mell Mccullough MD PATHOLOGY/CYTOLOGY Final Result [facility] [address] [place] [address], * GC CHLAMYDIA TRACH PROBE [[id number]] - vaginal (06/03/2025 3:39 PM CDT) CHLAMYDIA PROBE Negative 11:17 AM CDT [facility] N GONORRHOEAE PROBE Negative 06/04/2025 11:17 AM CDT [facility] Other VAGINAL SWAB / Unknown Non-Blood / Unknown 06/03/2025 3:39 PM CDT 06/03/2025 4:04 PM CDT Mell Mccullough MD MICROBIOLOGY Fi nal Result Performing Organization Address City/[facility]/ZIP Co de Phone Number [facility] [address] [place] [address], [place] * HPV HIGH RISK (06/03/2025 3:39 PM CDT) TYPE 16 Negative Negative 06/08/2025 3:51 PM CDT [facility] TYPE 18 Negative Negative 06/08/2025 3:51 PM CDT [facility] OTHER HIGH RISK TYPES Negative Negative 06/08/2025 3:51 PM CDT [facility] Other (Cervical) Non-Blood / Unknown 06/03/2025 3:39 PM CDT 06/04/2025 4:57 PM CDT Narrative [facility] - 06/08/2025 3:51 PM CDT HPV types 16, 18, 31, 33, 35, 39, 45, 51, 52, 56, 58, 59, 66 and 68 DNA were undetectable or below the pre-set threshold. Methodology: Suzi David 4800 HPV Test Mell Mccullough MD MICROBIOLOGY Fi nal Result [facility] [address] [place] [address], * URINE (06/03/2025 3:39 PM CDT) HCG, QL, URINE NEGATIVE NEGATIVE 06/04/2025 10:29 AM CDT [facility] Urine URINE SPECIMEN / Unknown Non-Blood / Unknown 06/03/2025 3:39 PM CDT 06/03/2025 4:05 PM CDT us Mell Mccullough MD URINE Fi nal Result [facility] [address] [address], [place] [phone] from Last 3 Months Insurance [facility] Care Teams Equipment Records Supervisor Relationship Specialty Start Date End Date Mell Mccullough MD PCP - General Family Practice 04/07/24
--- OUTSIDE RECORDS SUMMARY | 2025-08-28 13:04 | XMS_ITS | Data Portability ---
Author Organization [place] [facility] OFF[facility] Address [address] [place] [phone] Assessment No assessment recorded. Plan of Treatment Reminders Order Date Submit Date Provider Last Modified By Organization Details Last Modified Time Details Appointments None recorded. Lab drug screen, urine [address], [address] [place] [address], [address], 17:21:53 test, urine [address], [address] [place] [address], [address], 17:21:53 Referral None recorded. Procedures None recorded. Surgeries None recorded. Imaging None recorded. Medication Orders fluconazole 150 mg tablet 2022 023 JESUS MAN[facility]EL [facility]05425, [address] [place], [place], [id number], 3 14:52:04 Miralax 17 gram/dose oral powder 2022 023 [facility] #06068, [address] [place], [place], [id number], 3 14:52:03 Suboxone 12 mg-3 mg sublingual film 2022 023 [facility] #77130, [address] [place], [place], [id number], 3 14:52:10 Suboxone 8 mg-2 mg sublingual film 2022 023 [facility], [address] [place], [place], [id number], 3 14:52:09 quetiapine 50 mg tablet 2022 023 [email or web address] 6 [facility]34637, [address] [place], [place], [id number], 3 14:43:22 Suboxone 12 mg-3 mg sublingual film 2022 023 [facility]08[facility], [address] [place], [place], [id number], 3 18:10:44 Suboxone 8 mg-2 mg sublingual film 2022 023 [facility] #21008, [address] [place], [place], [id number], 3 18:10:44 Suboxone 12 mg-3 mg sublingual film 2022 023 [facility] #96488, [address] [place], [place], [id number], 3 15:47:07 Suboxone 8 mg-2 mg sublingual film 2022 023 [facility] #89231, [address] [place], [place], [id number], 3 15:47:07 Suboxone 12 mg-3 mg sublingual film 2022 023 [facility] #40208, [address] [place], [place], [id number], 3 17:14:22 Suboxone 8 mg-2 mg sublingual film 2022 023 [facility] #78740, [address] [place], [place], [id number], 3 17:14:22 gabapentin 300 mg capsule 2022 023 [email or web address] 6 [facility] #40034, [address] [place], [place], [id number], 3 14:42:25 Suboxone 12 mg-3 mg sublingual film 2022 023 [facility]88217, [address] [place], [place], [id number], 3 17:13:12 Suboxone 8 mg-2 mg sublingual film 2022 023 [facility] #71515, [address] [place], [place], [id number], 3 17:13:12 Patient TargetsNo targets recorded. Patient Instructions Encounter Date Encounter Id Patient Instructions Last Modified By Organization Details Last Modified Time 02/07/2023 [id number] anxiety disorder : care instructions [id number] Not available 02/07/2023 17:14:11 Reason for Referral None Reported. Results Created Date Observation Date Name Description Value Unit Range Abnormal Flag Note LastModifiedBy Organization Detail LastModifiedTime 01/11/2001/10/2023 pregn jane test, urine HCG negati ve Not Available [facility] [address] [place], [address], 01/10/2023 17:21:22 01/11/20 23 01/10/2023 drug scree n, urine Amphetamines : negati ve Not Available [facility] [address] [place], [address], 01/10/2023 17:21:21 01/11/20 23 01/10/2023 drug scree n, urine Cannabinoids : positi ve Not Available [facility] [address] [place] [address] [place], [address], 01/10/2023 17:21:21 01/11/20 23 01/10/2023 drug scree n, urine Cocaine: negati ve Not Available [facility] [address] [place] [address] [place], [address], 01/10/2023 17:21:21 01/11/20 23 01/10/2023 drug scree n, urine Opiates: negati ve Not Available [facility] [address] [place] [address] [place], [address], 01/10/2023 17:21:21 01/11/20 23 01/10/2023 drug scree n, urine Phenocyclidi ne: negati ve Not Available [facility] [address] [place] [address] [place], [address], 01/10/2023 17:21:21 01/11/20 23 01/10/2023 drug scree n, urine Barbiturates : negati ve Not Available [facility] [address] [place] [address] [place], [address], 01/10/2023 17:21:21 01/11/20 23 01/10/2023 drug scree n, urine Benzodiazepi carlene: negati ve Not Available [facility] [address] [place] [address] [place], [address], 01/10/2023 17:21:21 01/11/20 23 01/10/2023 drug scree n, urine Buprenorphin e positi ve Not Available [facility] [address] [place] [address] [place], [address], 01/10/2023 17:21:21 Result Notes None recorded. Problems Name Problem SNOMED Code Status Onset Date Resolution Date Notes Provider Name and Address Organization Details Recorded Time Fentanyl dependenc e 129129560 Completed 202106/21/2022 Josseline Mathur, PIPE [address] [place], [address], [facility] 2 15:55:42 History of intraveno us drug abuse 49858392578 608704 Active 08/22: HIV [place] [address] [place] [address], [address], [facility] 3 15:46:30 Generaliz ed anxiety disorder 68779314 Completed 202105/10/2022 [place] [address] [place] [address], [address], [facility] 2 15:27:19 Generaliz ed anxiety disorder 05040118 Active 2021 Josseline Mathur NP [address] [place], [address], [facility] 2 15:27:19 Opioid dependenc e, on agonist therapy 98014620658 05 Active 2021 Josseline Mathur, PIPE [address] [place], [address], [facility] 2 15:55:36 Problem Notes None recorded. Medical Equipment [...] Available Not Available No t Available Vitals None Recorded Social History Question Answer Notes LastModified by Organizat ion Details LastModified Time Tobacco Smoking Status Current Every Day Smoker Josseline Mathur NP [address] [place], [address], [facility] 05/10/2022 15:03:04 What Is The Highest Grade Or Level Of School You Have Completed Or The Highest Degree You Have Received? [id number] [email or web address] Information not available 05/10/2022 Who Is Your Employer? [employer] Care Information not available 03/21/2023 Sex: Unknown Functional Status Question Answer Note LastModified by Organization D etails LastModified Time Are you currently employed? Yes [email or web address] Information not available 05/10/2022 Mental Status None recorded. Family History Nothing Reported. Medical History Condition Response Hepatitis/Liver Disease N Psychiatric/Mental Health Condition Y Substance Abuse Y Mental Illness Y Gynecological History Statement/Question Response Menses Monthly Y LMP Approximate Sexually Active? N Obstetrics History GPAL:G 0 P 0 0 0 0 Immunizations Vaccine Type Date Status Note Provider Nam e and Address Organization Details Recorded Time DTaP, unspecified formulation 8 completed Josseline Mathur, PIPE [address] [place], [address], [facility] 08/10/2022 11:56:06 HPV9 8 completed Josseline Mathur NP [address] [place], [address], [facility] 08/10/2022 11:56:06 Td (adult), 5 Lf tetanus toxoid, preservative free, adsorbed 1 completed Josseline Mathur NP [address] [place], [address], [facility] 08/10/2022 11:56:06 Hep B, adolescent or pediatric 8 completed Josseline Mathur PIPE [address] [facility] [place], [address], [facility] 08/10/2022 11:56:06 DTaP, unspecified formulation 8 completed Josseline Mathur, PIPE [address] [facility] [place], [address], [facility] 08/10/2022 11:56:06 Hep A, adult 1 completed Josseline Mathur, PIPE [address] [facility] [place], [address], [facility] 08/10/2022 11:56:06 Hep B, adolescent or pediatric 8 completed Josseline Mathur, PIPE [address] [facility] [place], [address], [facility] 08/10/2022 11:56:06 DTaP, unspecified formulation 3 completed Josseline Mathur, PIPE [address] [facility] [place], [address], [facility] 08/10/2022 11:56:06 HPV9 6 completed Josseline Mathur NP [address] [facility], [address], [facility] 08/10/2022 11:56:06 meningococcal B, OMV 1 completed Josseline Mathur NP [address] [facility], [address], [facility] 08/10/2022 11:56:06 Hep B, adolescent or pediatric 7 completed Josseline Mathur NP [address], [address], [facility] 08/10/2022 11:56:06 MMR 3 lilibeth Mathur NP [address] [facility], [address], [facility] 08/10/2022 11:56:06 IPV 8 lilibeth Mathur, PIPE [address] [facility], [address], [facility] 08/10/2022 11:56:06 meningococcal MCV4P 6 completed Josseline Mathur, PIPE [address] [facility], [address], [facility] 08/10/2022 11:56:06 pneumococcal polysaccharide PPV23 1 completed Josseline Mathur, PIPE [address] [facility], [address], [facility] 08/10/2022 11:56:06 meningococcal MCV4P 0 completed Josseline Mathur, PIPE [address] [place], [address], [facility] 08/10/2022 11:56:06 varicella 0 completed Josseline Mathur, PIPE [address] [place], [address], [facility] 08/10/2022 11:56:06 Hep A, ped/adol, 2 dose 6 completed Josseline Mathur, PIPE [address] [place], [address], [facility] 08/10/2022 11:56:06 DTaP, unspecified formulation 8 completed Josseline Mathur, PIPE [address] [facility] [place], [address], [facility] 08/10/2022 11:56:06 Hib (PRP-T) 8 completed Josseline Mathur, PIPE [address] [place], [address], [facility] 08/10/2022 11:56:06 meningococcal MPSV4 0 completed Josseline Mathur, PIPE [address] [facility] [place], [address], [facility] 08/10/2022 11:56:06 Hib (PRP-T) 8 completed Josseline Mathur, PIPE [address] [facility] [place], [address], [facility] 08/10/2022 11:56:06 Influenza, split virus, trivalent, preservative 0 completed Josesline Mathur, PIPE [address] [place], [address], [facility] 08/10/2022 11:56:06 Tdap 0 completed Josseline Mathur, PIPE [address] [place], [address], [facility] 08/10/2022 11:56:06 Hib (PRP-T) 8 completed Josseline Mathur, PIPE [address] [place], [address], [facility] 08/10/2022 11:56:06 Hib (PRP-T) 8 completed Josseline Mathur, PIPE [address] [place], [address], [facility] 08/10/2022 11:56:06 Influenza, split virus, trivalent, preservative 9 completed Josseline Mathur, PIPE [address] [facility], [address], [facility] 08/10/2022 11:56:06 COVID-19 vaccine, vector-nr, rS-Ad26, PF, 0.5 mL 1 completed Josseline Mathur, PIPE [address] [place], [address], [facility] 08/10/2022 11:56:06 MMR 8 completed Josseline Mathur, PIPE [address] [place] [address], [address], [facility] 08/10/2022 11:56:06 IPV 8 completed Josseline Mathur, PIPE [address] [place] [address], [address], [facility] 08/10/2022 11:56:06 IPV 3 [place] [address] [place] [address], [address], [facility] 08/10/2022 11:56:06 Novel Jkbrvgpmn-[id number], all formulations 0 completed Josseline Mathur NP [address] [place] [address], [address], [facility] 08/10/2022 11:56:06 COVID-19, mRNA, LNP-S, PF, 30 mcg/0.3 mL dose 2 completed Josseline Mathur NP [address] [place] [address], [address], [facility] 08/10/2022 11:56:06 Influenza, split virus, quadrivalent, PF 6 completed Josseline Mathur NP [address] [place] [address], [address], [facility] 08/10/2022 11:56:06 HPV9 1 completed Josseline Mathur NP [address] [place] [address], [address], [facility] 08/10/2022 11:56:06 varicella 8 completed Josseline Mathur NP [address] [place] [address], [address], [facility] 08/10/2022 11:56:06 Past Encounters Encounter ID Performer Location Encounter Start Date Encounter Closed Date Diagnosis/Indication Diagnosis SNOMED-CT Code Diagnosis ICD10 Code Diagnosis IMO Codes Diagnosis Note [id number] Josseline Mathur [facility] [address] [place] [address] 05/10/2022 14:03:07 05/10/2022 14:54:40 Fentanyl dependence 275893988 F11.20 Opioid use disorder, moderate to severe. 9 days from last fentanyl use. Patient has researched Suboxone and opts to begin OAT. Reviewed [facility] Patient Treatment & Responsibi lities document. Specifical ly reviewed: 1) Antonia almaraz open communicat ion with myself and the clinic. Attending appointmen ts and cancelling appointmen t promptly if unable to come. 2) Safe storage of Suboxone and importance of taking as directed. Lock box provided. 3) Serious risks of combining Suboxone with benzodiaze pine or alcohol. Patient believes she will have no trouble abstaining from ETOH now that the worst of her withdrawal symptoms have passed. 4) Options of abstinence -only treatment, methadone or naloxone alone as other treatment options. Patient reviewed document, had the opportunit y to discuss it and answer any questions. Document signed and copy provided to patient. implicatio ns of Suboxone and OUD reviewed with patient who voiced understand ing. She currently has no concern for . Prescripti on for Suboxone 8mg/2mg films. Patient provided with Home Induction Guide and advised to start 1/4 strip this evening and then may repeat in 1-2 hours for total daily dose of 8mg. Can start up to 2 films BID tomorrow (only to take second film if needed). #5 strips provided and patient will call on Sunday for an update, earlier with concerns. Patient has next 3 days off of work and will hold off on driving or leaving house until she knows how Suboxone affects her. RTC next week for follow-up. Narcan Rx also provided.A dvised on potential side effects, especially due to co-prescri ptions of Gabapentin , Seroquel and Wellbutrin . We also discussed the risks of precipitat ed withdrawal although this is less likely as Nirali is 9 days out of opiate use and showing no signs of acute withdrawal . However, we are proceeding cautiously and she will pause her induction by at least 12 hours if she feels worse after her first 1/4 film. She will go to the ER with any worsening of precipitat ed withdrawal . Provided encouragem ent, support. Referral to [facility]. Patient also given contact informatio n for [facility] , [facility] and Dr. Mcguire as local psychiatry options. At next visit, will discuss obtaining records from last clinic.Inf ormation about SSP and cards also provided. History of intravenous drug abuse 4758065686 1698234 F19.11 Last screening 09/20 an has injected drugs since then. No history of liver disease of BBP. Alcohol in take above recommended sensible limits 162791788 F10.10 Extreme ETOH intake for the past 8 days as patient is trying to cope with withdrawal symptoms. Prior to this, patient reports she has not had any ETOH for years. She has never had a withdrawal seizure or other withdrawal sx after stopping ETOH. No ETOH x 24 hours. We agreed she will continue to refrain from any ETOH at this time r/t risks of combining ETOH with Suboxone as well as her mood medication s. [id number] Josseline Mathur, PIPE [facility] [address] [facility] [place] [address] 05/31/2022 14:40:16 05/31/2022 15:06:48 Acute urinary tract infection 714527668 N39.0 Patient discloses urinary frequency and hesitancy x 3 days. No fever. No chance of . In the past, she has been diagnosed with a UTI with these symptoms. No UTI in past 1-2 years. I have no lab services available to me today. We will treat empiricall y with Bactrim and patient will call me if her symptoms do not improve within 48 hours. Encouraged hydration. Fentanyl dependence 4260 [address]0980 F11.20 With recent return to fentanyl use (smoking only) after successful Suboxone induction. Patient wishes to re-start Suboxone. Her last induction took place 9 days after last use of Fentanyl. We discussed ideally waiting 9 days again; may consider starting at 7 days if sufficient withdrawal symptoms present. Reviewed when to safely start buprenorph ine as well as rationale for slow start of medication and to seek ER care with concerns of precipitat ed withdrawal . Inpatient detox is also an option if patient feels she cannot wait the 7-9 days again; we can help arrange this through [facility].Caitlin lemus is most concerned about restless legs and anxiety in the coming days as this has typically been her most troublesom e withdrawal symptom. I will send a small but sufficient quantity of Clonidine 0.1mg for patient to take BID up to 10 days. Advised against taking more than BID r/t concerns of sedation (especiall y with polypharma cy) and BP dropping. Patient agreed to take as directed. Zofran also sent to last patient up to 10 days. Prescripti ons for re-inducti ng Suboxone also sent so patient does not have to travel to pharmacy when she is in active withdrawal . Now receiving support form peer military personnel specialist at [facility]. I reached out to [facility] and asked if they can have patient sign a KATARINA so I can communicat e with them to support Nirali over these coming weeks. Therapist contact lizbeth guzman for [employer] and 2 other local therapists shared. Narcan prescripti on re-sent (sent to [facility] last time). Patient and I will talk on the phone next Sunday to review the plan. Patient will call before then with any questions or concerns. We also need to obtain Nirali's lab tests but agreed to put these on hold until she is not in withdrawal and stable on her Suboxone. These tests are important to screen for BBP but their results will not contraindi damari starting OAT. Nausea 236548478 R11.0 [id number] Josseline Mathur NP [facility] [address] [place] [address] 06/07/2022 16:04:26 06/07/2022 17:02:41 History of intravenous drug abuse 6057555770 6213107 F19.11 Last screening 09/20 an has injected drugs since then. No history of liver disease of BBP. Fentanyl dependence 4260 92010 F11.20 On day #2 since last using fentanyl. Nirali would like to continue to try to manage withdrawal at home and start Suboxone on day #7-9 as we have reviewed. I encouraged her to reach out to me or Nina Layne of [facility] if she wishes to consider detox or inpatient treatment to help her with re-inducti ng Suboxone. To ER with unmanageab le symptoms or concerns of precipitat ed withdrawal .Patient has Narcan and supportive meds of Clonidine and Zofran on hand. Her Suboxone prescripti on is also filled and ready to go. Patient and I will talk on the phone next Sunday to review her progress. Patient will call before then with any questions or concerns. [id number] Josseline Mathur NP [facility] [address] [place] [address] 06/21/2022 15:30:09 06/21/2022 16:08:57 Fentanyl dependence 243231258 F11.20 Opioid dep endence, on agonist therapy 6420849920 105 F11.20 Now on opiate agonist treatment. Tolerating Suboxone 16mg/2mg split well with no side effects and good control of cravings. No opiate use in over 2 weeks. Denies benzo, ETOH use. Stable job, stable housing. [employer] C[employer]IAN Reviewed: No Concerns. We reviewed the following plan:1) 2-week supply sent to [facility].2) RTC 2 weeks in person. Consider UDS and BBP labs if lab staff available at that time.3) Provided support and encouragem ent about progress. Encouraged patient to continue working with [facility] and to reach out to me with any concerns or questions. 4) Narcan on hand at home. [id number] Josseline Mathur NP [facility] [address] [place] [address] 07/19/2022 16:29:47 07/19/2022 17:00:14 Opioid dependence, on agonist therapy 1338367773 105 F11.20 Now 28 days since last opiate use. Doing very well on current dose with no use. Cravings well controlled . Tolerating well. Enrolled in therapy and considerin g outpatient treatment. Receiving support of [facility] as well. Stable housing, stable employment . Patient's main concern is dislike of taste and difficulty rememberin g to take her medication . She is interested in Subblocade . I agree that this is a great option for Nirali, especially now that she has transporta tion. I will complete the [facility] form and send it right away for a consult to discuss this as an option. N[employer] CUSTODIAN reviewed: Consistent with history.No concerns for . Narcan on hand. #21 day supply sent. RTC 3 weeks, earlier with concerns. Toothache 09719736 K08.8 9 Persistent toothache, causing some difficulti es eating. [id number] Josseline Mathur NP [facility] [address] [place] [address] 08/09/2022 16:43:00 08/09/2022 17:20:35 Opioid dependence, on agonist therapy 6523642126 105 F11.20 With recent return to use x 5-7 days. Last use 2 days ago. Wishes to re-start Suboxone and continue with Sublocade as she feels the daily medication is a barrier to continuing with OAT. Highly motivated to continue to make steps towards recovery Plan:1) I provided contact info and completed an online referral for the new [facility] clinic through [facility] which offers Sublocade. 2) KATARINA signed so I can fax notes and today's UDS results to the [facility] clinic when patient has an appointmen t scheduled there.3) 2.5 week supply (minus quantity on hand) sent to Jr. Patient will re-induct on Sunday when she will be 4 days out of her last use. She is familiar with waiting until she is moderate withdrawal and going low and slow. This worked well the last two times.4) Nirali will call me/[facility] so we can fax or provide whatever other material/r eferrals are needed for her to establish Sublocade care as soon as possible.5 ) Continue receiving support from MOST social workers and peer military personnel specialist s. I provided support and encouragem ent. Nirali is making so many positive steps and her honestly and return to clinic is very much appreciate d. NUCLEAR WEAPONS CUSTODIAN reviewed: Consistent with history.No concerns for . Urine HCG today negative. UDS consistent with history provided. Narcan on hand at home + refills at pharmacy if needed. RTC made for 08/21 in case patient is not able to establish care with [facility] prior to then. [id number] Josseline Mathur, PIPE [facility] [address] [place] [address] 08/21/2022 16:32:32 08/21/2022 17:39:55 Nausea [id number] R11.0 r/t anticipate d opiate withdrawal Fentanyl dependence [id number] F11.20 With recent unsuccessf ul re-inducti on after return to use. Last use this morning. Wishes to re-start Suboxone early next week after waiting 4 days with no opiates. Highly motivated to continue to make steps towards recovery and we agreed that if this induction is not successful , she will try inpatient detox. I spoke with her peer military personnel specialist , Gerald Layne (we have a release). Nina Layne is concerned that Nirali keeps having detox as a Plan B while never actually willing to opt for Plan B. Since she is using again, referral to [facility] clinic for Sublocade is on hold. Plan:1) Small supply of Clonidine and Immodium sent. Patient advised that combining these medication s with her existing regimen increases risk for sedation so these should be used in limited quantities .2) Patient will re-induct on Sunday (4 days after [place] which she plans on making her last opiate use). She is familiar with waiting until she is moderate withdrawal and going low and slow. This has worked well two times (this past time was unsuccessf ul after a withdrawal window of only 2.5 days).2) I will call Nirali on Sunday for a status report. She will call me before then with questions or concerns. To ER with any acute concerns.4 ) Continue receiving support from MOST social workers and peer military personnel specialist s. I provided support and encouragem ent. I will also continue to encourage detox. RTC 2.5 weeks. I will also call her Sunday for a status update. Continue to work with Nina Layne. [id number] Josseline Mathur NP [facility] [address] [place] [address] 11/01/2022 13:13:46 11/01/2022 13:50:14 Fentanyl dependence [id number] F11.20 Has returned to daily fentanyl use after a brief period of abstinence at the end of last year. Good candidate for low dose induction r/t severe withdrawal during convention al induction and fentanyl use. Patient has researched low-dose crossover protocols. We will proceed with the following: Day 1 (start with 2ml/0.5mg films): 0.25 film SL BID. Day 2: 0.5 film SL BID. Day 3 1 film BID. Day 4: 1.5 films SL BID. Day 5: 2 films BID. Day 6 (begin using 8mg/2mg films): 1.5 film SL once daily. Day 7 and onwards: 2 films SL Daily. Reviewed risks of sedation and/or unintentio nal overdose with using prescribed and non-prescr ibed opiate/opi ate agonists along with other sedating medication s. Patient is aware. Again advised against any benzodiaze pines or ETOH. Patient will call with any questions or concerns. To ER with any concerns for severe or precipitat ed withdrawal . I have asked her to reach out to me on Sunday with an update. Patient knows how to get in touch with me here; can also use services of Peer recovery developer support engineer Nina Layne. We will keep 11/22 visit. [id number] Josseline Mathur NP [facility] [address] [facility] [place] [address] 12/04/2022 15:19:29 12/04/2022 16:06:31 Fentanyl dependence [id number] F11.20 Stable employment , stable housing. Now also stable on Suboxone 16mg/4mg/d ay split BID after a successful induction. We will continue that. RTC 2 weeks, earlier with concerns. Patient will call with any questions or concerns before then. NUCLEAR WEAPONS CUSTODIAN Reviewed: Consistent with history. [address]70 Josseline Mathur NP [facility] [address] [facility] [place] [address] 12/18/2022 15:01:51 12/18/2022 15:26:22 Opioid dependence, on agonist therapy [id number] 105 F11.20 Now 19 days with no fentanyl use. Increasing ly stable on Suboxone 8mg/2mg BID but now experienci ng some later afternoon withdrawal symptoms and cravings. We will slightly increase her morning dose to 12mg/3mg and keep the 8mg/2mg evening dose. Caution advised r/t Nirali's other medication s and risk for somnolence but Nirali notes she takes her more sedating medication s in the evenings and has had no sedation to date. RTC 3 weeks in person, earlier with any other questions or concerns. NUCLEAR WEAPONS CUSTODIAN reviewed: Consistent with history.No concerns for . Narcan on hand at home + refills at pharmacy if needed. RTC made for 01/10 @4pm in [place] in o. [id number] Josseline Mathur NP [facility] [address] [facility] [place] [address] 01/10/2023 16:47:28 01/10/2023 17:28:43 Opioid dependence, on agonist therapy [id number] 105 F11.20 Now nearly 6 week with no fentanyl use. Stable housing, stable job. Engaged with talk therapy. Responded very well to slight increase of Suboxone to 12mg/3mg qam and 8mg/2mg qpm. No sedation or other side effects reported on this dose. RTC 4 weeks virtually, earlier with any other questions or concerns. NUCLEAR WEAPONS CUSTODIAN reviewed: Consistent with history.UD S: Consistent with history provided.U rine HCG: Negative. Support and encouragem ent provided. I did encouraged Nirali to reach out to peer military personnel specialist Nina Layne to share her progress and obtain further support. Narcan on hand at home + refills at pharmacy if needed. RTC made for 02/07 @4pm virtually. To call before then with any questions or concerns. Generalize d anxiety disorder [id number] F41.1 Patient initially prescribed Gabapentin 600mg TID by past psychiatri sts for SILAS. Has been off 10 days with no ill effects. However, patient is worrying about return of her anxiety off of this. [facility] this r/t concerns for abuse with Suboxone. We agreed that I will provide a small refill of a smaller dose that patient can have access to if she feels she absolutely needs the medication . Patient is actively seeking a new psychiatri st so I will hold off on connecting with [facility] until I know who it will be. UDS today shows no concerns for adherence. 96810 Josseline Mathur NP [facility] [address] [place] [address] 02/07/2023 16:59:51 02/07/2023 18:23:04 Opioid dependence, on agonist therapy [id number] 105 F11.20 Now nearly 2.5 months week with no fentanyl use. Stable housing, stable job. Continues to feel stable on Suboxone to 12mg/3mg qam and 8mg/2mg qpm. No sedation or other side effects reported on this dose. Talk therapy not well establishe d. Increase in anxiety. We will have a slightly shorter follow up to and patient will RTC 3 weeks virtually, earlier with any other questions or concerns. NUCLEAR WEAPONS CUSTODIAN reviewed: Consistent with history.UD S: Done 01/21. Consistent with history provided. Urine HCG also 01/21: Negative. Narcan on hand at home + refills at pharmacy if needed. Generalize d anxiety disorder [id number] F41.1 Discontinu e Gabapentin (patient has already self tapered). On buproprion 450mg and Lamictal 150mg daily. Mag [id number] F30.9 I encouraged Nirali to call [facility] to discuss her concerns for early mag and ensure she has access to all of her medication s. Re-establi shing talk therapy with [facility] also encouraged . [id number] Josseline Mathur NP [facility] [address] [place] [address] 03/21/2023 15:24:58 03/21/2023 16:03:22 Opioid dependence, on agonist therapy [id number] 105 F11.20 Now over 3 months with no fentanyl use. Stable housing, new job but increase in stress and in between psychiatri sts. Despite this, feels stable on Suboxone to 12mg/3mg qam and 8mg/2mg qpm. No sedation or other side effects reported on this dose. Patient has PCP appointmen t today at [facility]. She will talk to them about anxiety and also call [facility] to see if she can be seen earlier RTC 4 weeks virtually, earlier with any other questions or concerns. NUCLEAR WEAPONS CUSTODIAN reviewed: Consistent with history. Narcan on hand at home + refills at pharmacy if needed. 05430 Josseline Mathur NP [facility] [address] [place] [address] 04/18/2023 15:41:22 04/18/2023 18:15:11 Opioid dependence, on agonist therapy [id number] 105 F11.20 Now over 4 months with no fentanyl use. Stable housing, new job. Tolerated recent stressor of broken down care very well by using resources and seeking support. Has upcoming psychiatry appointmen t scheduled with [facility]. Feels stable on Suboxone to 12mg/3mg qam and 8mg/2mg qpm. No sedation or other side effects reported on this dose. Patient has 1 week supply on hand; I will send in a #30 day refill and patient will RTC in 5 weeks. NUCLEAR WEAPONS CUSTODIAN reviewed: Consistent with history. Narcan on hand at home + refills at pharmacy if needed. Consider UDS at upcoming visit. Insomnia [id number] G47.0 0 Nirali is in between psychiatri sts. I will send a 2-month supply to last patient until her late May visit wtih [facility] PMHNP. She has refills of her mood medication s 14346 Josseline Mathur NP [facility] [address] [place] [address] 06/20/2023 14:36:33 06/20/2023 15:06:39 Opioid dependence, on agonist therapy [id number] 105 F11.20 Now over 6 months with no fentanyl use. Stable housing, new job at [employer]. Soon to start school again. [facility] psychiatry appointmen t scheduled with [facility]. Will consider consolidat ing prescriber s. Continues to feel stable on Suboxone to 12mg/3mg qam and 8mg/2mg qpm. No sedation or other side effects reported on this dose. I will send #30 day supply + 1 refill and patient will RTC in 8 weeks virtually. NUCLEAR WEAPONS CUSTODIAN reviewed: Consistent with history. Narcan on hand at home + refills at pharmacy if needed. Vaginitis [id number] N76.0 With recent antibiotic use. Therapeuti c opioid induced constipation [id number] 08957 T40.2X5D + discussed topical treatments for hemorrhoid s and diet changes to promote easy-to-pa ss stools. Health Concerns Section Related Observation LastModified by Organization Detai ls LastModified Time None Recorded Concern Status LastModified by Organization Details LastModified Time None Recorded Advance Directives Directive None Recorded Payers Insurance Date Sequence Insurance Name Policy Number Policy Borrego Covered Member ID Borrego Member ID Guarantor Name 02/07/2023 1 [place] Nirali Boateng [id number] Nirali Boateng 05/10/2022 SLIDING FEE SCHEDULE - DISCOUNT Nirali Boateng 05/10/2022 SLIDING FEE SCHEDULE - DISCOUNT Nirali Boateng 02/07/2023 1 [place] Nirali Boateng [id number] Nirali Boateng 08/12/2023 [place] Nirali Boateng [id number] Nirali Boateng Notes Date Note Type Note Provider Name and Address Organization Details Recorded Time 01/10/2023 text/html Nirali 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 Nirali has been in recovery from fentanyl use for 1 month, 11 days. Reports occasional cravings for a little bit but it goes away. Has responded very well to Suboxone increase: taking at 6am (12mg), 7pm (8mg). No side effects. Denies any somnolence. No ETOH or benzos; occasional THC. Went home for [facility] and noted that she did not take her brother's prescribed Vicodin for his wisdom teeth surgery. This was a marked change from her past and she is extremely pleased. Has an jessica that reminds her how many days since her last use. Working a lot at [email or web address]. Established care with a new psychiatrist (unknown name) at [facility] in [place]. It was not a good fit. Psychiatrist has asked that I manage gabapentin due to concerns of abuse. Has an upcoming therapy appointment at [facility]. Making plans for enjoying her summer sober; will go camping with friends and family. No chance of . Has Narcan on hand at home. 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 Nirali has had a tough month. Her mood has been worsening and she is feeling a marked increase in her anxiety. She had a panic attack at the [employer] and has not returned. At our last visit, she had established talk therapy at [facility] but missed her intake appointment. Spent [...] on hand at home. Josseline Mathur NP [address] [place], [address], [facility] [employer] 02/07/2023 20:46:42 03/21/2023 text/html Nirali Boateng is a 27 year old single woman who presents today to our [facility] clinic virtually. Nirali missed her last appointment due to mutliple stressors. Has been coping by spacing out doses but would like to return to her last effective dose. Despite this increases in stress, things have been good. Nirali quit her job at [email or web address]. She was working constantly, over 90 hours per pay period. She was worried it was placing her at risk for relapse. She has been struggling with more anxiety, especially quitting job. Missed her appointment with the [employer]; she has asked to re-schedule that interview. Now working in a physically demanding job at a [employer]. Difficulty coping with anxiety and has scheduled [...] Has Narcan on hand at home. Josseline Mathur, PIPE ORGAN TUNER AND REPAIRER [address] [place], [address], [facility] - [facility] 03/21/2023 15:53:55 04/18/2023 text/html Nirali Boateng is a 27 year old [...] looking for support from Kimberly Layne, peer military personnel specialist. Missed one week of work but [...] hand at home. Josseline Mathur NP [address] [place], [address], [facility] [employer] [facility] 04/18/2023 18:12:47 06/20/2023 text/html Nirali Boateng is a 27 year old single woman who presents today to our [facility] clinic in person to review her progress on buprenorphine for OUD. Nirali is doing very well: she has a new job at the [employer] in and is signed up to take classes again through [employer] in October. She has not used and [...] to help others. Josseline Mathur NP [address] [facility] [place], [address], [facility] [employer] [facility] 06/20/2023 15:46:53 OBGyn Episode No OBEpisode recorded.
--- OUTSIDE RECORDS SUMMARY | 2025-08-28 13:04 | XMS_ITS | Patient Health Record ---
Author Organization [facility] Address [address] [place] [address] Care Team Providers Care Marine Cargo Specialist Name Role Phone Tamie James Unavailable [phone] Reason For Referral No Information Medications Medication [...] Base) MCG/ACT Aerosol Solution Inhalation *Reorder from [employer] for eRx and Interaction Alerts* Active Acyclovir 400 MG Tablet Oral Active QUEtiapine Fumarate 50 MG Tablet Oral Active Lidocaine Viscous 2 % Solution Mouth/Throat *Reorder from [employer] for eRx and Interaction Alerts* Active lamoTRIgine 25 MG Tablet Oral Active hydrOXYzine HCl 25 MG Tablet Oral Active lamoTRIgine 150 MG Tablet Oral Active lamoTRIgine 100 MG Tablet Oral Active Cetirizine HCl 10 MG Tablet Oral Active Diclofenac Sodium 1% Gel Transdermal Active Fluconazole 150 MG Tablet Oral Active Anbesol 10 % Gel Mouth/Throat *Reorder from [employer] for eRx and Interaction Alerts* Active traZODone HCl 50 MG Tablet Oral Active METRONIDAZOLE 0.75 % (37.5 MG/5 GRAM) VAGINAL GEL *Reorder from [employer] for eRx and Interaction Alerts* Active Naltrexone HCl 50 MG Tablet Oral Active cloNIDine HCl 0.1 MG Tablet Oral Active Problems Problem Type SNOMED Code ICD Code Onset Dates Problem Status W/U Status Risk Notes Problem Visual field defect (97400923) Unspecified visual field defects (H53.40) 04/15/2021 Active confirmed Plan Of Treatment No Information Insurance Providers Payer Name Payer Address Payer Phone Subscriber Number Group Number Insured Name Patient Relationship to Insured Coverage Start Date Coverage End Date [place] [employer] [facility] [address] [address] [place], [place] [id number] MISHRA Self - patient is the insured
[2025-08-28 13:13] VITALS: BP 103/67; PULSE 99; RESP 18; TEMP 36.8; O2SAT 95; BMI 24.2
--- NOTE | 2025-08-28 13:41 | ED.ALLEREA ---
HPI - Allergic Reaction General Time Seen by Provider: 13:41 Date Seen: 08/28/25 Chief complaint: Allergic Reaction Stated complaint: Allergic reaction--hands/lips swelling, hives Time Seen by Provider: 08/28/25 13:41 Source: patient, family, RN notes reviewed and old records reviewed Mode of arrival: ambulatory Limitations: no limitations History of Present Illness HPI narrative: This 30-year-old female is coming back in with eyelid swelling, lip swelling, some throat swelling and itching. She also notes her hands are itchy, her feet felt like the been swollen and itchy, burn to walk on when they are swollen. She did take prednisone this morning. She was in the ER recently for an allergic reaction, has an allergy consultation on September 10. She was in the ER recently, had a [place] Brownie from a Brownie mix and ended up with an allergic reaction. Presumably was this Brownie that she ate. She notes last night she started having a hive by her face. This morning her eyes and her lips were more swollen. She took 50 of Benadryl last night, helped symptoms. She did not take anything other than the prednisone this morning, 40 mg. She is not on Claritin or Zyrtec. She was seen on 08/25 and diagnosed with anaphylaxis. She had never had an allergic reaction before. She did receive epinephrine on the when here, did shrimp picker her prescription. She is not short of breath, no chest pain, no nausea vomiting or abdominal pain. She notes no travel where she would of potentially picked up any odd parasite or illness. She has not been sick with anything. MD complaint: allergic reaction and facial swelling Related Data Home Medications ?Medication ?Instructions ?Recorded ?Confirmed bupropion HCl 150 mg 24 hr tablet, 150 mg PO DAILY 10/01/22 11/12/23 extended release bupropion HCl 300 mg 24 hr tablet, 300 mg PO DAILY 10/01/22 11/12/23 extended release lamotrigine 100 mg tablet 100 mg PO DAILY 10/01/22 11/12/23 naloxone 4 mg/actuation nasal spray intranasal 10/01/22 buprenorphine 8 mg-naloxone 2 mg 10 mg sublingual BID 11/12/23 11/12/23 sublingual film (Suboxone) doxazosin 2 mg tablet 1 mg PO BID 02/12/24 02/12/24 methylphenidate HCl 20 mg tablet 20 mg PO BID 11/12/23 11/12/23 trazodone 100 mg tablet 200 mg PO DAILY 11/12/23 11/12/23 Previous Rx's ?Medication ?Instructions ?Recorded epinephrine 0.3 mg/0.3 mL 0.3 mg (0.3 mL) IM Q5-15M PRN #2 ea 08/25/25 injection, auto-injector prednisone 20 mg tablet 40 mg (2 x 20 mg) PO DAILY #8 tabs 08/25/25 famotidine 20 mg tablet 20 mg PO BID #60 tabs 08/28/25 Allergies Allergy/AdvReac Type Severity Reaction Status Date / Time No Known Drug Allergies Allergy Verified 11/12/23 13:48 Review of Systems Status of ROS Reports: 6 or more systems reviewed and unremarkable except as noted in History and below [facility] Social History Smoking Status: Current every day smoker What tobacco products do you use: cigarettes Do you use any of these nicotine containing products: Vaping Products Second hand tobacco smoke exposure: No How often do you have a drink containing alcohol: never How often do you have six or more drinks on one occasion: Never AUDIT-C Alcohol total score: 0 Non-prescribed substance use: former substance user service: No Exam Const: Vital Signs, click to edit/add: Vital Signs - 24 hr 08/28/25 13:13 08/28/25 14:00 08/28/25 14:11 Temperature 98.3 F Pulse Rate [Pulse Oximeter] 99 74 Respiratory Rate 18 16 Blood Pressure [Ri ght Upper Arm] 103/67 109/69 Pulse Oximetry 95 98 96 Oxygen Delivery Me thod Room Air Room Air 08/28/25 14:30 08/28/25 15:15 Temperature 98.0 F Pulse Rate [Pulse Oximeter] 71 57 L Respiratory Rate 16 16 Blood Pressure [Ri ght Upper Arm] 109/69 113/72 Pulse Oximetry 97 97 Oxygen Delivery Me thod Room Air Room Air This 30-year-old female is alert, interactive, no apparent distress. She is able to speak in complete sentences, no hoarseness, no stridor. There is mild periorbital swelling without erythema. The center of her upper and lower lip has some mild swelling. Her oropharynx reveals normal oral mucosa and tongue, uvula looks to be minimally edematous, so has a good oral airway. Neck is supple, no adenopathy. Lungs are clear, no wheezing or crackles, no tachypnea, no accessory muscle use. CV regular rate rhythm, no murmur. On the palms of her hands she has erythematous areas, not necessarily raise. She has some on her feet as well. She had 2 spots 1 on each foot that looked to be non blanchable petechiae but patient states she spilled her lip stain last night and those 2 areas on the bottom of her feet are from staining from her lip stain. Abdomen is soft, nontender, nondistended, no organomegaly. Note no other your urticaria elsewhere on the skin. There is a little bit erythema on the balls of both of her feet within the skin. Documenting provider has reviewed patient's vital signs: yes Course Course ED Course: This patient obviously has ongoing allergic reaction, will give her 0.3 mg IM epinephrine, have her on pulse oximetry and cardiac monitoring. We are going to start an IV, give her another L of fluids. I will get IV Benadryl 25 mg, IV Pepcid 20 mg and oral Zyrtec. The antihistamine properties of the Zyrtec or Claritin on an outpatient basis might be very beneficial for her. I will order a tryptase. We discussed the rationale for this, they know that I will not have a back but it may help an main entree cook and cashier. Reevaluation(s) Time of Reevaluation #1: 15:43 Reevaluation #1: Patient is up ambulatory to the bathroom. She is feeling better. Her rash has resolved, swelling improved, no itching anywhere including oral pharyngeal. Still feel there might be some slight central lip swelling but overall improved, eyes definitely without any swelling. Uvula looks improved but think there still could be a little swelling, she does not feel any itching or any significant oral pharyngeal concerns at this time. Time of Reevaluation #2: 17:06 Reevaluation #2: Patient overall feels much better. She has not had any return of symptoms. The medications have helped resolve her acute allergic symptoms. She will be seeing an main entree cook and cashier in [place] through [facility]. That will be September 10, she needs keep that appointment. We will keep her on Zyrtec and Pepcid until then. She can use supplemental Benadryl as needed. She does have an EpiPen. Vital Signs Vital signs: Initial Vital Signs Temperature 98.3 F 08/28/25 13:13 Temperature Source Temporal Artery Scan 08/28/25 13:13 Pulse Rate 99 08/28/25 13:13 Respiratory Rate 18 08/28/25 13:13 Blood Pressure 103/67 08/28/25 13:13 Blood Pressure Mean 79 08/28/25 13:13 Blood Pressure Position Sitting 08/28/25 13:13 Pulse Oximetry 95 08/28/25 13:13 Oxygen Delivery Method Room Air 08/28/25 13:13 Vital Signs Temperature 98.3 F 08/28/25 13:13 Pulse Rate 99 08/28/25 13:13 Respiratory Rate 18 08/28/25 13:13 Blood Pressure 103/67 08/28/25 13:13 Pulse Oximetry 95 08/28/25 13:13 Oxygen Delivery Method Room Air 08/28/25 13:13 Temperature 98.0 F 08/28/25 15:15 Pulse Rate 57 L 08/28/25 15:15 Respiratory Rate 16 08/28/25 15:15 Blood Pressure 113/72 08/28/25 15:15 Pulse Oximetry 97 08/28/25 15:15 Oxygen Delivery Method Room Air 08/28/25 15:15 Medications Administered Medications: Discontinued Medications Generic Name Dose Route Start Last Admin Trade Name Averyq PRN Reason Stop Dose Admin Cetirizine HCl 10 mg 08/28/25 13:58 08/28/25 14:00 Cetirizine Hcl 10 Mg Tablet PO 08/28/25 13:59 10 mg DAILY ONE Administration Diphenhydramine HCl 25 mg 08/28/25 13:57 08/28/25 14:00 Diphenhydramine 50 Mg/Ml Inj IVP 08/28/25 13:58 25 mg ONCE ONE Administration Epinephrine HCl 0.3 mg 08/28/25 13:42 08/28/25 13:55 Epinephrine 0.3 Mg Pen IM 08/28/25 13:43 0.3 mg ONCE ONE Administration Famotidine 20 mg 08/28/25 13:57 08/28/25 14:00 Famotidine 10 Mg/Ml Inj IVP 08/28/25 13:58 20 mg ONCE ONE Administration Sodium Chloride 1,000 mls @ 500 mls/hr 08/28/25 13:58 08/28/25 15:15 0.9 % Sodium Chloride 1000 Ml IV 08/28/25 15:57 Infused .Q2H ABIEL Infusion MDM - Allergic Reaction Lab Data Attestation: I reviewed the patient's lab results. Lab results narrative: Tryptase level pending. Labs: Lab Results 08/28/25 Range/Units 14:11 WBC 8.67 (4.50-11.00) K/uL RBC 4.22 (4.00-5.20) m/uL Hgb 11.5 L (12.0-16.0) gm/dL Hct 36.2 (33.0-51.0) % MCV 86 (80-100) fL MCH 27 (26-34) pg MCHC 32 (32-36) gm/dL RDW Coeff of Shantel 13.3 (11.5-15.5) % Plt Count 246 (140-440) K/uL Neut % (Auto) 78.9 H (42.0-72.0) % Lymph % (Auto) 16.5 L (20-44) % Bucks % (Auto) 4.3 (0.0-11.0) % Eos % (Auto) 0.0 (0.0-7.0) % Baso % (Auto) 0.0 (0.0-3.0) % Neut # (Auto) 6.80 (1.7-7.0) K/uL Lymph # (Auto) 1.40 (0.90-2.90) K/uL Bucks # (Auto) 0.40 (0.00-0.90) K/UL Eos # (Auto) 0.00 (0.00-0.50) K/uL Baso # (Auto) 0.00 (0.00-0.30) K/uL Abs Immat Gran (auto) 0.03 (0.00-0.30) K/uL Imm/Tot Granulo (auto) 0.3 % Sodium 137 (135-149) mmol/L Potassium 3.8 (3.6-5.1) mmol/L Chloride 101 (96-114) mmol/L Carbon Dioxide 26 (20-32) mmol/L Anion Gap 10 (7-15) mEq/L BUN 14 (5-24) mg/dL Creatinine 0.9 (0.5-1.5) mg/dL Estimated Creat Clear 70.22 Estimated GFR 89 ml/min Glucose 107 (60-115) mg/dL Calcium 8.5 (8.4-10.6) mg/dL Total Bilirubin 0.6 (0.1-1.5) mg/dL AST 24 (12-35) U/L ALT 21 (4-35) U/L Alkaline Phosphatase 52 (40-150) U/L Total Protein 7.2 (6.0-8.3) g/dL Albumin 4.4 (3.3-5.0) g/dL Discharge Plan Discharge Clinical Impression: Allergic reaction Qualifiers: Encounter type: subsequent encounter Qualified Code(s): T78.40XD - Allergy, unspecified, subsequent encounter Patient Disposition: Home, Self-Care Condition: Stable Instructions: Anaphylaxis (ED), General Allergic Reaction (ED) Additional Instructions: Complete the prednisone that had been ordered for you. We will have you take Zyrtec 10 mg twice a day, this is [id number], it is fine to use the generic. Will also place you on Pepcid twice a day until you see the main entree cook and cashier. You can use Benadryl per package instructions as needed for any breakthrough symptoms despite being on the Zyrtec and Pepcid. It is really important that you follow-up with main entree cook and cashier. I would agree with avoidance of anything that was in that packaged brownies. Keep your EpiPen with you at all times. If you have significant return of symptoms, it is always recommended to use your EpiPen; any time you use your EpiPen you do need to seek emergent evaluation. Activity Level: No Restrictions Prescriptions: New famotidine 20 mg tablet 20 mg PO BID Qty: 60 2RF No Action methylphenidate HCl 20 mg tablet 20 mg PO BID trazodone 100 mg tablet 200 mg PO DAILY doxazosin 2 mg tablet 1 mg PO BID buprenorphine-naloxone [Suboxone] 8-2 mg film 10 mg sublingual BID epinephrine 0.3 mg/0.3 mL auto-injector 0.3 mg IM Q5-15M PRNQty: 2 0RF Rx Instructions: do not exceed 3 doses per episode prednisone 20 mg tablet 40 mg PO DAILY Qty: 8 0RF bupropion HCl 150 mg tablet extended release 24 hr 150 mg PO DAILY Patient Comments: TAKE 1 TABLET BY MOUTH DAILY bupropion HCl 300 mg tablet extended release 24 hr 300 mg PO DAILY Patient Comments: TAKE 1 TABLET BY MOUTH DAILY lamotrigine 100 mg tablet 100 mg PO DAILY Patient Comments: TAKE 1 TABLET BY MOUTH DAILY naloxone 4 mg/actuation spray,non-aerosol INTRANASAL Patient Comments: CALL 911. SPR CONTENTS OF ONE SPRAYER (0.1ML) INTO ONE NOSTRIL. REPEAT IN 2-3 MIN IF SYMPTOMS OF OPIOID EMERGENCY PERSIST, ALTERNATE NOSTRILS Follow Up/Referrals: Mell Mccullough MD [Primary Care Provider, Family Practice] Stand Alone Forms: [employer] Info Instructions
[2025-08-28] MEDS: EPINEPHrine 0.3 MG PEN IM (13:55)
[2025-08-28 14:00] VITALS: BP 109/69; PULSE 74; RESP 16; O2SAT 98
[2025-08-28] MEDS: FAMOTIDINE 10 MG/ML inj 20 MG IVP (14:00)
[2025-08-28] MEDS: CETIRIZINE HCL 10 MG TABLET PO (14:00)
[2025-08-28 14:11] VITALS: O2SAT 96
[2025-08-28 14:24] LABS: Hematocrit* 36.2 % (33.0-51.0); Hemoglobin* 11.5 gm/dL (12.0-16.0); Immature Granulocytes Abs Auto 0.03 K/uL (0.00-0.30); Immature Granulocytes Pct Auto 0.3 %; Mean Corpuscular HGB Conc 32 gm/dL (32-36); Mean Corpuscular Hemoglobin 27 pg (26-34); Mean Corpuscular Volume 86 fL (80-100); RDW Coefficient of Variation % 13.3 % (11.5-15.5); Red Blood Count* 4.22 m/uL (4.00-5.20); White Blood Count* 8.67 K/uL (4.50-11.00)
[2025-08-28 14:30] VITALS: BP 109/69; PULSE 71; RESP 16; O2SAT 97
[2025-08-28 14:36] LABS: Chloride* 101 mmol/L (96-114)
[2025-08-28 14:37] LABS: Albumin* 4.4 g/dL (3.3-5.0); Potassium* 3.8 mmol/L (3.6-5.1); Sodium* 137 mmol/L (135-149)
[2025-08-28 14:39] LABS: Alanine Aminotransferase* 21 U/L (4-35); Anion Gap 10 mEq/L (7-15); Aspartate Amino Transferase* 24 U/L (12-35); Blood Urea Nitrogen* 14 mg/dL (5-24); Carbon Dioxide* 26 mmol/L (20-32); Creatinine* 0.9 mg/dL (0.5-1.5); Est. Creatinine Clearance* 70.22; Estimated Glomerular Filt Rate 89 ml/min; Total Protein* 7.2 g/dL (6.0-8.3)
[2025-08-28 14:40] LABS: Alkaline Phosphatase* 52 U/L (40-150); Bilirubin Total* 0.6 mg/dL (0.1-1.5); Calcium* 8.5 mg/dL (8.4-10.6); Glucose* 107 mg/dL (60-115)
[2025-08-28 14:44] LABS: Lymphocytes Absolute Auto 1.40 K/uL (0.90-2.90); Slide Review Reflex No
[2025-08-28 15:15] VITALS: BP 113/72; PULSE 57; RESP 16; TEMP 36.7; O2SAT 97
[2025-08-28 17:26] VITALS: BP 106/62; PULSE 51; RESP 16; TEMP 36.7
== END 2025-08-28 17:27 | disposition home or self-care (01) ==
PROVIDERS: Emergency Provider Family Medicine; PCP Student in an Organized Health Care Education/Training Program
DX: L50.0 Allergic urticaria (principal); T78.19XA Other adverse food reactions, not elsewhere classified, initial encounter
CPT/HCPCS: 36415; 80053; 83520; 85025; 94761; 96361; 96374; 96375; 99284; A9270; J0169; J1200; J1308; J7030